=== PATIENT | female | born 1965 | race Caucasian/White ===

== ENCOUNTER 2019-11-22 10:37 | Outpatient (CLI) | payer OTHER, SELFPAY ==
--- NOTE | ~2019-11-22 | US_ITS ---
EXAMINATION:US venous doppler LE RT INDICATION:Right lower leg pain TECHNIQUE: Multiple grayscale, color flow and Doppler images of the right lower extremity deep venous systems were obtained and reviewed. COMPARISON:No prior studies for comparison. FINDINGS: The common femoral, superficial femoral and popliteal veins demonstrate normal respiratory variation, augmentation and compressibility. Color flow is also seen within the posterior tibial, pe roneal, greater saphenous and profunda veins. There is a Marroquin's cyst in the right popliteal fossa. IMPRESSION: 1: No lower extremity deep venous thrombosis. Reviewed, dictated and finalized at location A.
== END 2019-11-22 10:38 | disposition home or self-care (01) ==
PROVIDERS: PCP Family Medicine; Visit Provider Family Medicine
DX: M79.661 Pain in right lower leg (principal)
CPT/HCPCS: 93971

== ENCOUNTER 2019-12-13 10:07 | Outpatient (CLI) | payer OTHER, SELFPAY ==
--- NOTE | 2019-12-13 11:30 | NEURO_ITS ---
Patient Number: [id number] Impression: # Complains of pain in elbow and wrist. # No Carpal Tunnel Syndrome or ulnar neuropathy. # Normal nerve conduction study. # Normal needle/EMG exam. # Clinical correlation recommended. Nerve Conduction Studies Anti Sensory Summary Table Stim Site NR Peak (ms) P-T Amp (?V) Site1 Site2 Delta-P (ms) Dist (cm) Willy (m/s) Left Median Anti Sensory (2-3nd Digit) Wrist 2.8 79.9 Wrist 2-3nd Digit 2.8 14.0 50 Wrist 2.8 66.3 Wrist 2-3nd Digit 2.8 14.0 50 Right Median Anti Sensory (2-3nd Digit) Wrist 2.8 74.1 Wrist 2-3nd Digit 2.8 14.0 50 Wrist 2.8 60.8 Wrist 2-3nd Digit 2.8 14.0 50 Left Radial Anti Sensory (Base 1st Digit) Wrist 2.0 21.7 Wrist Base 1st Digit 2.0 0.0 Right Radial Anti Sensory (Base 1st Digit) Wrist 2.5 12.9 Wrist Base 1st Digit 2.5 0.0 Left Ulnar Anti Sensory (5th Digit) Wrist 2.3 38.7 Wrist 5th Digit 2.3 14.0 61 Right Ulnar Anti Sensory (5th Digit) Wrist 2.4 14.2 Wrist 5th Digit 2.4 14.0 58 Motor Summary Table Stim Site NR Onset (ms) O-P Amp (mV) Site1 Site2 Delta-0 (ms) Dist (cm) Willy (m/s) Left Median Motor (Abd Poll Brev) Wrist 2.9 5.9 Elbow Wrist 4.6 26.0 57 Elbow 7.5 5.1 Right Median Motor (Abd Poll Brev) Wrist 2.9 5.8 Elbow Wrist 4.7 26.0 55 Elbow 7.6 3.6 Left Ulnar Motor (Abd Dig Minimi) Wrist 2.4 6.9 A Elbow Wrist 4.5 28.0 62 A Elbow 6.9 5.9 Right Ulnar Motor (Abd Dig Minimi) Wrist 2.5 5.4 A Elbow Wrist 4.6 28.0 61 A Elbow 7.1 4.6 F Wave Studies NR F-Lat (ms) L-R F-Lat (ms) Left Median (Mrkrs) (Abd Poll Brev) 26.75 1.14 Right Median (Mrkrs) (Abd Poll Brev) 27.89 1.14 Left Ulnar (Mrkrs) (Abd Dig Min) 26.40 0.50 Right Ulnar (Mrkrs) (Abd Dig Min) 26.90 0.50 EMG Side Muscle Nerve Root Ins Act Fibs Amp Dur Recrt Comment Right 1stDorInt Ulnar C8-T1 Nml Nml Nml Nml Nml Right Ext Indicis Radial (Post Int) C7-8 Nml Nml Nml Nml Nml Right Ext Digitorum Radial (Post Int) C7-8 Nml Nml Nml Nml Nml Right BrachioRad Radial C5-6 Nml Nml Nml Nml Nml Right PronatorTeres Median C6-7 Nml Nml Nml Nml Nml Right Abd Poll Brev Median C8-T1 Nml Nml Nml Nml Nml Left 1stDorInt Ulnar C8-T1 Nml Nml Nml Nml Nml Left Ext Indicis Radial (Post Int) C7-8 Nml Nml Nml Nml Nml Left Ext Digitorum Radial (Post Int) C7-8 Nml Nml Nml Nml Nml Left BrachioRad Radial C5-6 Nml Nml Nml Nml Nml Left PronatorTeres Median C6-7 Nml Nml Nml Nml Nml Left Abd Poll Brev Median C8-T1 Nml Nml Nml Nml Nml MTDD
== END 2019-12-13 10:08 | disposition home or self-care (01) ==
PROVIDERS: PCP Family Medicine; Visit Provider Family Medicine
DX: R20.2 Paresthesia of skin (principal)
CPT/HCPCS: 95886; 95911

== ENCOUNTER → 2020-12-23 13:43 | Outpatient (CLI) | payer BC, SELFPAY ==
--- NOTE | ~2020-12-23 | US_ITS ---
EXAMINATION: US pelvic complete w TV EXAM DATE: 12/23/2020 14:09 INDICATION: Pelvic pain. TECHNIQUE: Pelvic transabdominal and transvaginal sonogram was performed. There are multiple graysca le and Doppler images available for interpretation. There is no prior study for comparison. FINDINGS: Uterus measures 6.6 x 2.6 x 3.5 cm, is retroverted and morphologically normal. Endometria l stripe measures 2 mm, within normal limits. There is no free pelvic fluid. Right adnexa: The ovary measures 1.6 x 0.8 x 1.5 cm and is morphologically normal. Ovarian vascular f low confirmed. Left adnexa: The ovary measures 1.9 x 1.3 x 1.4 cm and is morphologically normal. Ovarian vascular fl ow confirmed. IMPRESSION: 1. Unremarkable pelvic ultrasound exam. Reviewed, dictated and finalized at location A.
== END ==
PROVIDERS: Visit Provider Family Medicine
DX: R10.2 Pelvic and perineal pain (principal)
CPT/HCPCS: 76830; 76856

== ENCOUNTER → 2021-01-31 12:29 | Outpatient (CLI) | payer BC, SELFPAY ==
--- NOTE | ~2021-01-31 | MM_ITS ---
EXAMINATION: MM screening sarita BI w fadi HISTORY: Screening mammogram, family history of breast cancer in her mother and sister. TECHNIQUE: Craniocaudal and mediolateral oblique 3-D tomosynthesis images were obtained and synthetic 2-D images were generated. CAD analysis was submitted and interpreted. COMPARISON: 08/02/2017, 07/23/2017, 03/05/2016 BREAST PARENCHYMAL COMPOSITION: The breasts are extremely dense, which lowers the sensitivity of mamm ography. FINDINGS: There is no evidence of suspicious mass, calcification, or architectural distortion to sugg est malignancy in either breast. There has been no suspicious interval change. IMPRESSION: 1. No mammographic evidence of malignancy. 2. Recommend routine screening mammography in one year. BI-RADS Category 1: Negative Reviewed, dictated and finalized at location A.
== END ==
PROVIDERS: PCP Family Medicine; Visit Provider Family Medicine
DX: Z12.31 Encounter for screening mammogram for malignant neoplasm of breast (principal)
CPT/HCPCS: 77063; 77067

== ENCOUNTER → 2022-09-02 16:47 | Outpatient (CLI) | payer OTHER, SELFPAY ==
--- NOTE | ~2022-09-02 | MM_ITS ---
EXAMINATION: MM screening sarita BI w fadi HISTORY: Screening mammogram TECHNIQUE: Craniocaudal and mediolateral oblique 3-D tomosynthesis images were obtained and synthetic 2-D images were generated. CAD analysis was submitted and interpreted. COMPARISON: 01/31/2021 bilateral screening mammogram 08/02/2017 left diagnostic mammogram and left complete breast ultrasound examination 07/23/2017 bilateral screening mammogram BREAST PARENCHYMAL COMPOSITION: FINDINGS: . Possible asymmetry/architectural distortion in the posterior outer right breast on CC projection. New approximately 11 mm opacity is suggested in the central left breast on craniocaudal view approxim ately 3.8 cm deep to the nipple. IMPRESSION: 1. Bilateral mammographic asymmetries 2. Bilateral diagnostic mammogram and breast ultrasound examination are recommended. BI-RADS Category 0: Incomplete: Needs additional imaging evaluation. Reviewed, dictated and finalized at location A. WIRE CHIEF IMPRESSION: 1. Bilateral mammographic asymmetries 2. Bilateral diagnostic mammogram and breast ultrasound examination are recomme nded. BI-RADS Category 0: Incomplete: Needs additional imaging evaluation.
== END ==
PROVIDERS: PCP Nurse Practitioner; Visit Provider Nurse Practitioner
DX: Z12.31 Encounter for screening mammogram for malignant neoplasm of breast (principal); R92.8 Other abnormal and inconclusive findings on diagnostic imaging of breast
CPT/HCPCS: 77063; 77067

== ENCOUNTER → 2022-09-23 08:52 | Outpatient (CLI) | payer OTHER, SELFPAY ==
--- NOTE | ~2022-09-23 | MMUS_ITS ---
EXAMINATION: MM diagnostic sarita BI w fadi, US breast BI limited HISTORY: Bilateral breast asymmetries on screening mammogram TECHNIQUE: Additional 3-D tomosynthesis images of the breasts were performed and synthetic 2-D images were generated. CAD analysis was submitted and interpreted. High resolution limited bilateral breast ultrasound was performed. COMPARISON: 09/02/2022, 01/31/2021, 08/02/2017 FINDINGS: MAMMOGRAPHIC FINDINGS: There is a return to baseline fibroglandular appearance with spot compression of the breasts in the a reas questioned on screening mammogram. ULTRASOUND: There is no evidence of focal abnormal solid or cystic mass in the vicinity of the mammographic findi ngs in question. IMPRESSION: 1. No mammographic or sonographic evidence of malignancy. 2. Recommend routine screening mammography in one year. BI-RADS Category 1: Negative Reviewed, dictated and finalized at location A. TMENT MAINTENANCE MANAGER IMPRESSION: 1. No mammographic or sonographic evidence of malignancy. 2. Recommend routine screening mammography in one year. BI-RADS Category 1: Negative
== END ==
PROVIDERS: PCP Family Medicine; Visit Provider Nurse Practitioner
DX: R92.8 Other abnormal and inconclusive findings on diagnostic imaging of breast (principal)
CPT/HCPCS: 76642; 77062; 77066; G0279

== ENCOUNTER 2024-01-13 13:12 | Outpatient (CLI) | payer BC, SELFPAY ==
--- NOTE | ~2024-01-13 | MM_ITS ---
EXAMINATION: MM screening sarita BI w fadi HISTORY: Screening mammogram, family history of breast cancer in her mother and sister. TECHNIQUE: Craniocaudal and mediolateral oblique 3-D tomosynthesis images were obtained and synthetic 2-D images were generated. CAD analysis was submitted and interpreted. COMPARISON: 09/23/2022, 09/02/2022, 01/31/2021 BREAST PARENCHYMAL COMPOSITION:Dense: The breasts are extremely dense, which lowers the sensitivity o f mammography. FINDINGS: No suspicious mass, calcification, or architectural distortion are identified in either jeri ast to suggest malignancy. There has been no suspicious interval change. IMPRESSION: No mammographic evidence of malignancy. Recommend routine screening mammography in one year. BI-RADS Category 1: Negative Reviewed, dictated and finalized at location .
== END 2024-01-13 13:13 | disposition home or self-care (01) ==
LOC: ANHIMG 13:14
PROVIDERS: PCP Family Medicine; Visit Provider Nurse Practitioner
DX: Z12.31 Encounter for screening mammogram for malignant neoplasm of breast (principal)
CPT/HCPCS: 77063; 77067

== ENCOUNTER 2024-08-10 15:09 | Outpatient (CLI) | payer BC, SELFPAY ==
--- NOTE | ~2024-08-10 | XR_ITS ---
Left Hand Technique: PA, oblique, and lateral views were obtained. Clinical History: Arthralgia Findings: No acute fracture or dislocation is seen. Osseous alignment is anatomic. There is moderate degenerative change of the third and fourth DIP joints. Soft tissues are unremarkable. Impression: Degenerative change of the third and fourth DIP joints, as above. Reviewed, dictated and finalized at location . TED CIRCUIT BOARD PANELS TRIMMER Impression: Degenerative change of the third and fourth DIP joints, as above.
--- NOTE | ~2024-08-10 | XR_ITS ---
Right Hand Technique: PA, oblique, and lateral views were obtained. Clinical History: Arthralgia Findings: No acute fracture or dislocation is seen. Osseous alignment is anatomic. Joint spaces are p reserved. Soft tissues are unremarkable. Impression: Unremarkable right hand. Reviewed, dictated and finalized at location . DESIGNER Impression: Unremarkable right hand.
== END 2024-08-10 15:10 | disposition home or self-care (01) ==
PROVIDERS: PCP Family Medicine; Visit Provider Nurse Practitioner
DX: M25.541 Pain in joints of right hand (principal); M20.009 Unspecified deformity of unspecified finger(s); M19.042 Primary osteoarthritis, left hand
CPT/HCPCS: 73130

== ENCOUNTER 2024-09-11 10:53 | Outpatient (CLI) | payer BC, SELFPAY ==
--- NOTE | ~2024-09-11 | CT_ITS ---
CT of the Abdomen and Pelvis: Indication: Postmenopausal bleeding, abdominal pain Technique: 2.5 mm axial scans were obtained through the abdomen and pelvis following intravenous adm inistration of 100 cc of Omnipaque 350. Dose reduction technique was used on this scan by utilizing a utomated exposure control and iterative reconstruction technique. The dose-length product (DLP) was 2 89.50 mGy-cm. Findings: Scans through the lung bases are unremarkable. The liver, spleen, pancreas, adrenals and kidneys are within normal limits. Cholecystectomy clips are present. No evidence of aortic aneurysm. No lymphadenopathy. No bowel obstruction or bowel wall thickening. There is no evidence to suggest acute appendicitis. Images through the pelvis were performed. Urinary bladder unremarkable. No pelvic mass seen. No ascit es. Bilateral L5 pars interarticularis defects are present, without subluxation. Impression: No acute abnormality seen. Given history of postmenopausal bleeding, pelvic ultrasound is recommended for further evaluation of the endometrium. Reviewed, dictated and finalized at [facility]. CE 365 CONSULTANT Impression: No acute abnormality seen. Given history of postmenopausal bleeding, pelvic ult rasound is recommended for further evaluation of the endometrium.
== END 2024-09-11 10:54 | disposition home or self-care (01) ==
PROVIDERS: PCP Nurse Practitioner; Visit Provider Nurse Practitioner
DX: N95.0 Postmenopausal bleeding (principal); R10.33 Periumbilical pain; R14.0 Abdominal distension (gaseous)
CPT/HCPCS: 74177; Q9967

== ENCOUNTER 2024-09-20 10:20 | Outpatient (CLI) | payer BC, SELFPAY ==
--- NOTE | ~2024-09-20 | US_ITS ---
US pelvic complete Ordering provider: Opal Ortiz, ANP History: . postmenopausal bleeding . Comparison: None. Technique: Transabdominal and endovaginal ultrasound of the pelvis (Doppler ultrasound interrogation techniques used as needed for this exam.) FINDINGS: CERVIX: Normal. UTERUS: Measures 6.9x 2.5x 4.4 cm in length which is within normal limits and is anteverted. No myom etrial masses. ENDOMETRIUM: Normal in thickness measuring 5 mm.No endometrial masses, cysts or fluid. CUL DE SAC: No free fluid. RIGHT OVARY: Normal in size measuring 2.3x 1.2x 1.5 cm. Normal echotexture. Doppler vascular flow pre sent. LEFT OVARY: Normal in size measuring 1.7x 0.9x 1.5 cm. Normal echotexture. Doppler vascular flow pres ent. ADNEXA: Normal. No mass. IMPRESSION: normal pelvic ultrasound. Reviewed, dictated and finalized at location A. EY STATISTICIAN IMPRESSION: normal pelvic ultrasound.
== END 2024-09-20 10:21 | disposition home or self-care (01) ==
LOC: MICIMG 10:20
PROVIDERS: PCP Nurse Practitioner; Visit Provider Nurse Practitioner
DX: N95.0 Postmenopausal bleeding (principal)
CPT/HCPCS: 76856

== ENCOUNTER 2024-12-12 11:55 | Outpatient (CLI) | payer BC, SELFPAY ==
--- NOTE | ~2024-12-12 | XR_ITS ---
XR_[id number]_CR Ordering provider: Opal Ortiz, ANP History: . Cervical radiculopathy . Comparison: None. FINDINGS: VERTEBRAL BODIES: Anterolisthesis seen at the level of C4-C5. Otherwise, Normal height and alignment. No visible fracture or subluxation. The dens is intact. Degenerative changes of the spine. DISK SPACES: Narrowing of the disc C5-C6 and C6-C7. Multilevel facet joint disease. Multilevel uncove rtebral joint osteoarthritic changes. PARASPINOUS SOFT TISSUES: No prevertebral soft tissue swelling. IMPRESSION: No acute osseous abnormality cervical spine. Minimal anterolisthesis at the level of C4-C5. Multilevel degenerative disc disease. Reviewed, dictated and finalized at location A.
--- NOTE | ~2024-12-12 | XR_ITS ---
3 VIEWS LUMBAR SPINE Ordering provider: Opal Ortiz, ANP History: . Lumbar radiculopathy . Comparison: None. FINDINGS: VERTEBRAL BODIES:Spondylolysis at the level of L5-S1. No visible fracture or subluxation. DISK SPACES: Normal. SOFT TISSUES: Normal. IMPRESSION: No acute osseous abnormality lumbar spine. Spondylolysis at the level of L5-S1. Reviewed, dictated and finalized at location A.
== END 2024-12-12 11:56 | disposition home or self-care (01) ==
PROVIDERS: PCP Nurse Practitioner; Visit Provider Nurse Practitioner
DX: M47.26 Other spondylosis with radiculopathy, lumbar region (principal); M50.30 Other cervical disc degeneration, unspecified cervical region
CPT/HCPCS: 72040; 72100

== ENCOUNTER 2024-12-29 14:56 | Outpatient (CLI) | payer BC, SELFPAY ==
--- NOTE | ~2024-12-29 | MR_ITS ---
MRI of the cervical spine Clinical History: Radiculopathy Technique: Axial T2-weighted and gradient images, and sagittal T1-weighted, T2-weighted, and STIR freya ges were acquired. Findings: No fracture identified in the cervical spine. There is 2 mm anterolisthesis of C3 over C4. There is 2 mm retrolisthesis of C5 over C6. No suspicious bone marrow signal abnormality seen. At C2-C3, there is no disc bulge or herniation. There is minimal facet arthropathy. No central canal stenosis, cord compression, or neural foraminal narrowing. At C3-C4, there is no disc bulge or herniation. There is bilateral facet arthropathy with probable mi ld bilateral neural foraminal narrowing. No canal stenosis or cord compression. At C4-C5, there is disc bulge with left facet arthropathy. There is left neural foraminal narrowing. Right neural foramen preserved. No canal stenosis or cord compression. At C5-C6, there is advanced degenerative disc narrowing. There is minimal disc osteophyte complex. Th ere is minimal canal stenosis without cord compression. There is bilateral neural foraminal narrowing , moderate to severe degree. At C6-C7, there is severe degenerative tearing. There is mild disc osteophyte complex. There is mild to moderate canal stenosis without jamel cord compression. There is bilateral neural foraminal narrow ing, moderate to severe in degree. No abnormal signal seen in the spinal cord. Paravertebral soft tissues are unremarkable. Impression: Moderate to advanced degenerative spondylosis at C5-C6 and C6-C7, as detailed above. Mild degenerative change in the remainder of the cervical spine. 2 mm anterolisthesis of C3 over C4. 2 mm retrolisthesis of C5 over C6. Reviewed, dictated and finalized at [facility]. Impression: Moderate to advanced degenerative spondylosis at C5-C6 and C6-C7, as detailed a codie. Mild degenerative change in the remainder of the cervical spine. 2 mm anterolisthesis of C3 over C4. 2 mm retrolisthesis of C5 over C6.
--- NOTE | ~2024-12-29 | MR_ITS ---
MRI of the lumbar spine Clinical History: Radiculopathy Technique: Axial T2-weighted images, and sagittal T1-weighted, T2-weighted, and T2 fat-sat images wer e acquired. Findings: There is no fracture or subluxation of the lumbar spine. Vertebral bodies maintain normal h eight and alignment. No bone marrow signal abnormality seen. At L1-L2 and L2-L3, intervertebral disc maintain normal signal and position. No disc bulge or herniat ion at these levels. There is minimal facet arthropathy. No spinal canal stenosis or neural foraminal narrowing at these levels. L3-L4, there is minimal disc desiccation. No disc bulge or herniation. No spinal canal stenosis or ne ural foraminal narrowing. At L4-L5, there is mild disc bulge/protrusion with minimal facet arthropathy. No central canal stenos is or neural foraminal narrowing. At L5-S1, there is minimal disc bulge. No spinal canal stenosis or neural foraminal narrowing. There is mild right paracentral disc protrusion noted at the T12-L1 level. No canal stenosis or neura l foraminal narrowing at this level. Paravertebral soft tissues are unremarkable. Impression: Minimal degenerative change overall, as detailed above. Reviewed, dictated and finalized at location . Impression: Minimal degenerative change overall, as detailed above.
== END 2024-12-29 14:57 | disposition home or self-care (01) ==
PROVIDERS: PCP Nurse Practitioner; Visit Provider Nurse Practitioner
DX: M47.22 Other spondylosis with radiculopathy, cervical region (principal); M51.369 Other intervertebral disc degeneration, lumbar region without mention of lumbar back pain or lower extremity pain
CPT/HCPCS: 72141; 72148

== ENCOUNTER 2025-02-08 07:53 | Outpatient (CLI) | payer BC, SELFPAY ==
--- NOTE | ~2025-02-08 | MM_ITS ---
EXAMINATION: MM screening sarita BI w fadi HISTORY: Screening TECHNIQUE: Craniocaudal and mediolateral oblique 3-D tomosynthesis images were obtained and synthetic 2-D images were generated. CAD analysis was submitted and interpreted. COMPARISON: Comparison to multiple prior studies sequentially, with oldest reviewed study dated 03/05. BREAST PARENCHYMAL COMPOSITION: The breasts are heterogeneously dense, which may obscure small masses . FINDINGS: There is no evidence of suspicious mass, calcification, or architectural distortion to sug gest malignancy in either breast. IMPRESSION: 1. No mammographic evidence of malignancy. 2. Recommend routine screening mammography in one year. BI-RADS Category 1: Negative Reviewed, dictated and finalized at location B.
--- OUTSIDE RECORDS SUMMARY | 2025-02-08 07:58 | XMS_ITS | Clinical Summary ---
Author Organization [facility] Address [address] [place] [address] Phone Care Team Providers Care Operations Support Representative Name Role Phone Vic Eldridge MD Primary Care Provider [phone] Allergies Active Allergy Reactions Criticality Noted Date Comments Lactose Diarrhea Low 10/14/2016 Penicillins Other (See Comments) 10/09/2016 Throat closes up Medications sertraline (ZOLOFT) 50 mg tablet Take 50 mg by mouth daily TAKES 1/2 TAB DAILY. Active dicyclomine (BENTYL) 10 mg capsule Take 10 mg by mouth 1 time daily as needed. Active Active Problems Problem Noted Date Diagnosed Date Cervical spondylosis without myelopathy 12/27/19 19 Right rotator cuff tendonitis 12/26/2018 Gallstones 10/09/2016 Family History Medical History Relation Name Comments No Known Problems Father Breast Cancer Mother Cancer Sister Relation Name Status Comments Father Alive Mother Alive Sister Social History Tobacco Use Types Packs/Day Years Used Date Smoking Tobacco: Former E-Cigarette/Mist Inhalation Device Smokeless Tobacco: Former Alcohol Use Standard Drinks/Week Comments Yes 0 (1 standard drink = 0.6 oz pur e alcohol) 2-3 GLASSES OF WINE DAILY Comments Unknown Sex and Gender Information Value Date Recorded Sex Assigned at Not on file Legal Sex Female 8:48 AM CDT Gender Identity Not on file Sexual Orientation Not on file Occupation Industry Job Start Date Job End Date [employer] Not on file Not on file Not on file Last Filed Vital Signs Vital Sign Reading Time Taken Comments Blood Pressure 118/80 12/26/2018 11:07 AM CDT Pulse 79 11/02/2016 4:21 PM CDT Temperature 36.7 C (98 F) 10/20/2016 4:01 PM CDT Respiratory Rate 16 10/20/2016 4:01 PM CDT Oxygen Saturation 98% 10/20/2016 4:01 PM CDT Inhaled Oxygen Concentration - - Weight 59 kg (130 lb) 12/26/2018 11:07 AM CDT Height 152.4 cm (5') 12/26/2018 11:07 AM CDT Body Mass Index 25.39 12/26/2018 11:07 AM CDT Plan of Treatment Health Maintenance Due Date Last Done Comments DTAP/TDAP/TD VACCINES (1 - Tdap) 10/22/1986 HEPATITIS B VACCINES (1 of 3 - 19+ 3-dose series) 12/1986 HPV/Cotest (21-29) 10/22/1988 CERVICAL CANCER SCREENING 10/22/1997 HPV/Cotest (30-65) 10/22/1997 PAP SMEAR 10/22/1997 BREAST CANCER SCREENING 2007 COLORECTAL SCREENING 10/22/2012 Colorectal Cancer Screening 10/22/2012 FIT-DNA Q 3 years 10/22/2012 FIT/FOBT Q 1 year 10/22/2012 Flex Sig/CT Colonography Q 5 years 10/22/2012 ZOSTER VACCINE (1 of 2) 10/22/2017 INFLUENZA VACCINE (#1) 2025 Insurance RX [employer] RX Member Subscriber Plan / Payer (Ef fective for All Dates) Name:Susy Gold Relation to Subscriber:Self Name:Susy Gold Payer ID:Not on file Type:RX Commercial Address: [address] Advance Directives For more information, please contact: [phone] * Full Code (Latest Code Status on File) Date Activated Date Inactivated Comments 10/20/2016 12:52 PM 10/20/2016 6:30 PM * Full Code Date Activated Date Inactivated Comments 10/20/2016 11:35 AM 10/20/2016 12:52 PM * Full Code Date Activated Date Inactivated Comments 10/20/2016 10:12 AM 10/20/2016 11:35 AM Care Teams Operations Support Representative Relationship Specialty Start Date End Date Vic Eldridge MD PCP - General Family Practice 09/30/16
--- OUTSIDE RECORDS SUMMARY | 2025-02-08 07:58 | XMS_ITS | Encounter Summary ---
Author Organization [facility] Address [address] [place] [id number] Care Team Providers Care Band Head Saw Operator Name Role Phone Opal Ortiz NP Primary Care Provider [phone] Encounter Details Date Type Department Care Team (Late st Contact Info) Description 03/24/2024 [employer] Message Enc [facility] Family Medicine - [place] [address] [facility] [address] [place] [address] [phone] Opal Ortiz NP [address] [place] [address] Bone Density Scan Social History Tobacco Use Types Packs/Day Years Used Date Smoking Tobacco: Former Cigarettes 1 15 0 07/19/1995 - 07/19/2010 Passive Smoke Exposure: Never Smokeless Tobacco: Never Alcohol Use Standard Drinks/Week Comments Not Currently 0 (1 standard drink = 0.6 oz pur e alcohol) quit drinkin 2016 PHQ-2 Answer Date Recorded Patient Health Questionnaire-2 Score 0 12/30/2023 Comments No Sex and Gender Information Value Date Recorded Sex Assigned at Female 09/01/2024 9:00 AM HAND BLOCKER Legal Sex Female 11:48 AM HAND BLOCKER Gender Identity Female 09/01/2024 9:00 AM HAND BLOCKER Sexual Orientation Straight 09/01/2024 9: 00 AM HAND BLOCKER documented as of this encounter Progress Notes * Opal Ortiz NP - 04/10/2024 11:32 AM CDT See below * Opal Ortiz NP - 03/24/2024 4:14 PM CDT See below. I am not sure what preventative code for her DEXA she is needing as it is typically covered under the Dx's that I used. documented in this encounter Plan of Treatment Not on file documented as of this encounter Visit Diagnoses Not on filedocumented in this encounter Additional Health Concerns Assessment Noted Time PHQ-9 Depression Total Score: 2 12/30/19 24 8:45 AM CDT documented as of this encounter Care Teams Band Head Saw Operator Relationship Specialty Start Date End Date Opal Ortiz NP [address] [place] [address] PCP - General NURSE PRACTITIONER 10/09/22 documented as of this encounter
--- OUTSIDE RECORDS SUMMARY | 2025-02-08 07:58 | XMS_ITS | Encounter Summary ---
Author Organization [facility] Address [address] [place] [address] Care Team Providers Care Head Of Talent Management Name Role Phone Opal Ortiz NP Primary Care Provider [phone] Encounter Details Date Type Department Care Team (Late st Contact Info) Description 01/01/2025 [employer] Message [facility] Family Medicine [facility] [address] [facility] [address] [place] [address] [id number] [facility] Provider results and referral dept number Social History Tobacco Use Types Packs/Day Years Used Date Smoking Tobacco: Former Cigarettes 1 15 0 07/19/1995 - 07/19/2010 Passive Smoke Exposure: Never Smokeless Tobacco: Never Alcohol Use Standard Drinks/Week Comments Not Currently 0 (1 standard drink = 0.6 oz pur e alcohol) quit drinkin 2016 PHQ-2 Answer Date Recorded Patient Health Questionnaire-2 Score 0 11/23/2024 Comments No Sex and Gender Information Value Date Recorded Sex Assigned at Female 09/01/2024 9:00 AM TELEPHONE SURVEYOR Legal Sex Female 11:48 AM TELEPHONE SURVEYOR Gender Identity Female 09/01/2024 9:00 AM TELEPHONE SURVEYOR Sexual Orientation Straight 09/01/2024 9: 00 AM TELEPHONE SURVEYOR documented as of this encounter Plan of Treatment Not on file documented as of this encounter Visit Diagnoses Not on filedocumented in this encounter Additional Health Concerns Assessment Noted Time PHQ-9 Depression Total Score: 2 12/30/19 24 8:45 AM CDT documented as of this encounter Care Teams Head Of Talent Management Relationship Specialty Start Date End Date Opal Ortiz NP [address] [place] [address] PCP - General NURSE PRACTITIONER 10/09/22 documented as of this encounter
--- OUTSIDE RECORDS SUMMARY | 2025-02-08 07:58 | XMS_ITS | Clinical Summary ---
Author Organization [facility] Address [address] [place] [address] Care Team Providers Care Abalone Processor Name Role Phone Vic Eldridge MD Primary Care Provider [phone] Allergies Active Allergy Reactions Criticality Noted Date Comments Lactose Diarrhea Low 10/14/2016 ABDOMINAL PAIN Penicillins Other (See comments) Low 10/09/2016 Throat closes up Medications atorvastatin (LIPITOR) 10 mg tablet Take 10 mg by mouth daily 0 Active cyclobenzaprine (FLEXERIL) 10 mg tablet nightly as needed Active diazePAM (VALIUM) 5 mg tablet Take 5 mg by mouth 2 (two) times a day as needed 0 Active traMADoL (ULTRAM) 50 mg tablet tramadol 50 mg tablet 9 Active sertraline (ZOLOFT) 50 mg tablet sertraline 50 mg tablet TAKE 1 TABLET BY MOUTH ONCE DAILY 9 Active meloxicam (MOBIC) 15 mg tablet meloxicam 15 mg tablet Take 1 tablet by mouth once daily Active Active Problems Problem Noted Date Diagnosed Date 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 (2016): CHR LYMPHOCYT THYROIDIT Dizziness 10/26/2013 Immunizations Immunization Administration Dates Next Due Tdap 08/10/2019 ZOSTER Recombinant 01/08/2020,08/10/2019 Surgical History Surgery Date Site/Laterality Comments CHOLECYSTECTOMY TUBAL LIGATION Medical History Medical History Date Comments Disorder of thyroid Thyroid dise ase Anxiety Hypercholesteremia Migraines Peripheral neuropathy Urinary tract infection Family History Medical History Relation Name Comments Arthritis Father Hypertension Father Stroke Father Cancer Mother Hypertension Mother Cancer Sister Relation Name Status Comments Father Mother Sister Social History Tobacco Use Types Packs/Day Years Used Date Smoking Tobacco: Former Smokeless Tobacco: Never Tobacco Cessation:Counseling Given: Not Answered Alcohol Use Standard Drinks/Week Comments Yes 0 (1 standard drink = 0.6 oz pur e alcohol) Comments Unknown Sex and Gender Information Value Date Recorded Sex Assigned at Not on file Legal Sex Female 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 Gender Identity Female 01/17/2020 11:33 AM CDT Sexual Orientation Not on file Obstetrics History Last Filed Vital Signs Vital Sign Reading Time Taken Comments Blood Pressure 122/80 01/23/2020 10:38 AM CDT Pulse 78 01/23/2020 10:38 AM CDT Temperature - - Respiratory Rate - - Oxygen Saturation 97% 10/26/2013 7:59 AM CDT Inhaled Oxygen Concentration - - Weight 58.2 kg (128 lb 6.4 oz) 11/11/2022 9:12 A M CDT Height 156.2 cm (5' 1.5) 11/11/2022 9:12 AM CDT Body Mass Index 23.87 11/11/2022 9:12 AM CDT Plan of Treatment Health Maintenance Due Date Last Done Comments Breast Cancer Screening-Mammogram 1967 Cervical Cancer Screening 1967 Colon Cancer Screening-Colonoscopy 1967 Depression Screening 1967 Hepatitis C Screening 1967 Hepatitis B Screening 10/22/1985 Regular Well Visit/Exam 18-64 10/22/1985 Influenza Vaccine (Season Ended) 2025 DTaP/Tdap/Td Vaccine (2 - Td or Tdap) 08/10/2029 08/10/2019 Zoster Vaccine Completed 01/08/2020, 08/10/2019 Pneumococcal vaccine <65 Aged Out No longer eligible based on patient's age to complete this topic Insurance A[employer] [facility] HMO CIGNA OPEN ACCESS CIGNA OPEN ACCESS [facility] HMO Care Teams Abalone Processor Relationship Specialty Start Date End Date Vic Eldridge MD [facility] [place] [address] PCP - General 03/08/08
--- OUTSIDE RECORDS SUMMARY | 2025-02-08 07:58 | XMS_ITS | Clinical Summary ---
Author Organization [facility] [employer] Address [address] [place] [address] Care Team Providers Care Engineering Mgr Name Role Phone Vic Eldridge MD Unavailable [phone] Vic Eldridge MD Primary Care Provider Source Comments [facility] [employer],non-owned Affiliates and Associated Physician Practices is amultiple site organization consisting of ambulatory clinics and hospital sitesin [place], [place] and [place]. This disclosure is being madepursuant to the Care Everywhere program and may not contain all information available regarding this patient. Last updated 18.[facility] [employer] Allergies Active Allergy Reactions Criticality Noted Date Comments Penicillins 11/03/2010 Medications * Be aware that medications may not be up to date on this document. Alwaysverify current medications with the patient. levothyroxine (SYNTHROID) 25 MCG tablet daily. Active Hydrocodone-Robin taminophen 10-750 MG TABS as needed. Acti ve traMADol (ULTRAM) 50 MG tablet as needed. Active tapentadol (NUCYNTA) 75 MG tablet daily as needed. Act james cyclobenzaprine (FLEXERIL) 10 MG tablet nightly as needed. Active piroxicam (FELDENE) 10 MG capsule Take 1 Cap by mouth once daily. Pt will discontinue voltaren 60 Cap 3 2 Active Active Problems Problem Noted Date Diagnosed Date Family history of breast cancer 10/18/2017 Overview (10/18/2017): 11/22/2014 [place] sent on pt's mother, Velma Rodriguez (webb): negative for mutation.[employer] panel genetic testing includes: APC, RICH, BARD1, BMPR1A, BRCA1, BRCA2, BRIP1, CDH1, CDK4, CDKN2A, CHEK2, EPCAM (large rearrangement only), MLH1, MSH2, MSH6, MUTYH, NBN, PALB2, PMS2, PTEN, RAD51C, RAD51D, SMAD4, STK11, TP53. Have copy. 02/24/2010 Pt's maternal aunt, Cheryl Jernigan ( 05/13/45): had BRCA testing with myriad: Negative, did not include Steven. Have copy. 04/23/2010 Pt's sister, Kendal Samuels ( 03/17/65): had BRCA testing with myriad: Negative, did not include Steven. Have copy Degeneration of lumbar or lumbosacral interverte bral disc 11/05/2010 Family History Medical History Relation Name Comments Cancer - Breast Maternal Aunt 1 Kallie Cancer - Breast Maternal Aunt 2 Sejal Jernigan brca n egative, did not include steven Cancer - Breast Mother Velma Rodriguez Myriad My Risk negative Cancer - Breast Sister Kendal Corrigan brca neg, d id not include steven Hodgkin's lymphoma Sister Kendal Corrigan had ches t mantle radiation Relation Name Status Comments Maternal Aunt 1 Kallie Maternal Aunt 2 Sejal Jernigan Alive Mother Velma Rodriguez Alive Sister Kendal Corrigan Alive Social History Tobacco Use Types Packs/Day Years Used Date Smoking Tobacco: Former Smokeless Tobacco: Never Alcohol Use Standard Drinks/Week Comments Yes 0 (1 standard drink = 0.6 oz pur e alcohol) Comments No Sex and Gender Information Value Date Recorded Sex Assigned at Not on file Legal Sex Female 11:33 AM 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 Gender Identity Not on file Sexual Orientation Not on file 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 Not on file Not on file Not on file Last Filed Vital Signs Vital Sign Reading Time Taken Comments Blood Pressure 137/86 07/24/2015 8:12 AM 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 Pulse 81 07/24/2015 8:12 AM 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 Temperature 36.8 C (98.3 F) 07/24/2015 8:12 AM 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 Respiratory Rate 18 07/24/2015 8:12 AM 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 Oxygen Saturation - - Inhaled Oxygen Concentration - - Weight 56.6 kg (124 lb 11.2 oz) 07/24/2015 8:12 AM 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 Height 152.4 cm (5') 07/24/2015 8:12 AM 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 Body Mass Index 24.35 07/24/2015 8:12 AM 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 Plan of Treatment Health Maintenance Due Date Last Done Comments COLOGUARD (AGES 45-75) - COL ON CA SCREENING 1967 COLON MONITORING 1967 COLONOSCOPY - COLON CA SCREENING 1967 CT COLONOGRAPHY - COLON CA SCREENING 1967 Colorectal Cancer Screening 1967 FIT - COLON CA SCREENING 1967 FLEX SIG - COLON CA SCREENING 1967 LIPID TESTING 1967 HIV SCREENING 10/22/1982 HEPATITIS C SCREENING 10/18/1985 DTAP/TDAP/TD VACCINES (1 - Tdap) 10/22/1986 HEPATITIS B VACCINE (1 of 3 - 19+ 3-dose series) 10/22/1986 PNEUMOCOCCAL VACCINE 50+ (1 of 1 - PCV) 10/22/2017 ZOSTER VACCINE (1 of 2) 10/22/2017 MAMMOGRAM 12/05/2021 12/06/2019, 10/03/2018 COVID-19 VACCINE (1 - 2023-2 5 season) 2024 DEPRESSION SCREENING 07/19/2024 INFLUENZA VACCINE (#1) 2025 HIB VACCINE Aged Out No longer eligi ble based on patient's age to complete this topic HPV VACCINE Aged Out No longer eligi ble based on patient's age to complete this topic MENINGOCOCCAL (Group B) VACCINE SHARED DECISION-MAKING Aged Out No longer eligible based on patient's age to complete this topic MENINGOCOCCAL GROUPS A/C/Y/W VACCINE Aged Out No longer eligible b ased on patient's age to complete this topic Procedures Procedure Name Priority Date/Time Associated Diagnosis Comments MAMMO BILAT SCREENING Routine 12/06/2019 2:07 PM CDT Visit for screening mammogram from Last 3 Months or Most Recently Relevant to Health Maintenance Results * LUC SCREENING DIGITAL IMAGE BILATERAL [id number] (12/06/2019 2:07 PM CDT) Anatomical Region Laterality Modality Breast Bilateral Mammography 12/06/2019 2:1 6 PM CDT Impressions 12/06/2019 2:20 PM CDT No mammographic evidence of malignancy in either breast. ASSESSMENT: BIRADS Category 1: Negative mammogram. RECOMMENDATION: Bilateral screening mammogram in one year. Thank you for allowing us to participate in the care of your patient. *Reading Radiologist: Matt Wolf on 12/06/2019 at 2:20 PM Narrative 12/06/2019 2:20 PM CDT EXAMINATION: Digital screening mammogram on 12/06/2019. Low-dose full-field digital breast tomosynthesis examination was performed with synthetic 2D images and 3D acquisitions. Computer assisted detection was utilized. PRIOR: Multiple prior mammograms, most recently 2018 BREAST PARENCHYMAL DENSITY: The breasts are heterogeneously dense, which may obscure small masses. RISK ASSESSMENT CALCULATION: Not performed. FINDINGS: No suspicious masses, areas of architectural distortion or microcalcifications are evident on synthetic 2D mammogram or tomosynthesis images. There has been no significant interval change since the prior examination. Vic Eldridge MD MAMMO ORDERABLES Final Result from Last 3 Months or Most Recently Relevant to Health Maintenance Insurance [employer] ANTH Care Teams Engineering Mgr Relationship Specialty Start Date End Date Vic Eldridge MD [address] [place] [address] [address] [place] [id number] PCP - General Family Medicine 10/03/18 Vic Eldridge MD [address] [place] [address] [address] [place] [id number] 11/03/10
--- OUTSIDE RECORDS SUMMARY | 2025-02-08 07:58 | XMS_ITS | Encounter Summary ---
Author Organization [facility] Address [address] [place] [address] Care Team Providers Care Process Owner Name Role Phone Opal Ortiz NP Primary Care Provider [phone] Encounter Details Date Type Department Care Team (Late st Contact Info) Description 08/31/2024 [employer] Clean Tech Message Enc [facility] Family Medicine - [place] [address] [facility] [address] [place] [address] [phone] Opal Ortiz, DAREK [address] [place] [address] Re 09/01/24 Appt / Symptom Social History Tobacco Use Types Packs/Day Years Used Date Smoking Tobacco: Former Cigarettes 1 15 0 07/19/1995 - 07/19/2010 Passive Smoke Exposure: Never Smokeless Tobacco: Never Alcohol Use Standard Drinks/Week Comments Not Currently 0 (1 standard drink = 0.6 oz pur e alcohol) quit drinkin 2017 PHQ-2 Answer Date Recorded Patient Health Questionnaire-2 Score 0 08/09/2024 Comments No Sex and Gender Information Value Date Recorded Sex Assigned at Female 09/01/2024 9:00 AM MENHADEN VESSEL PILOT Legal Sex Female 11:48 AM MENHADEN VESSEL PILOT Gender Identity Female 09/01/2024 9:00 AM MENHADEN VESSEL PILOT Sexual Orientation Straight 09/01/2024 9: 00 AM MENHADEN VESSEL PILOT documented as of this encounter Plan of Treatment Not on file documented as of this encounter Visit Diagnoses Not on filedocumented in this encounter Additional Health Concerns Assessment Noted Time PHQ-9 Depression Total Score: 2 12/30/19 24 8:45 AM CDT documented as of this encounter Care Teams Process Owner Relationship Specialty Start Date End Date Opal Ortiz NP [address] [place] [address] PCP - General NURSE PRACTITIONER 10/09/22 documented as of this encounter
--- OUTSIDE RECORDS SUMMARY | 2025-02-08 07:58 | XMS_ITS | Clinical Summary ---
Author Organization [facility] Address [facility] [place] [address] Care Team Providers Care Criminalist Technician Name Role Phone Opal Ortiz NP Primary Care Provider [phone] Allergies Active Allergy Reactions Criticality Noted Date Comments Penicillins Anaphylaxis High 06/04/2022 Medications atorvastatin (LIPITOR) 10 MG tabletIndications: Screening for hyperlipidemia TAKE 1 TABLET(10 MG) BY MOUTH EVERY NIGHT AT BEDTIME 90 tablet 3 09/04/19 25 Active sertraline (ZOLOFT) 25 MG tabletIndications: Anxiety and depression TAKE 1 TABLET(25 MG) BY MOUTH DAILY 90 tablet 11/22/19 25 Active cyclobenzaprine (FLEXERIL) 10 MG tablet Take 1 tablet (10 mg total) by mouth 3 (three) times daily as needed for Muscle Spasms. Active gabapentin (NEURONTIN) 100 MG capsuleIndications :Cervical radiculopathy,Lumb ar radiculopathy Take 1 capsule (100 mg total) by mouth 3 (three) times daily. 30 capsule 12/13/19 25 Active traMADol (ULTRAM) 50 MG tabletIndications: Lumbar radiculopathy,Dege neration of intervertebral disc of lumbar region, unspecified whether pain present TAKE 1 TABLET(50 MG) BY MOUTH EVERY 6 HOURS NEEDED FOR PAIN OR CHRONIC PAIN 7 tablet 01/06/20 25 Active meloxicam (MOBIC) 15 MG tabletIndications: Lumbar radiculopathy,Dege neration of intervertebral disc of lumbar region, unspecified whether pain present,Cervical radiculopathy Take 1 tablet (15 mg total) by mouth daily. 90 tablet 01/16/20 25 Active meloxicam (MOBIC) 7.5 MG tablet Take 1 tablet (7.5 mg total) by mouth daily as needed for Pain. 025 Discontinued meloxicam (MOBIC) 15 MG tabletIndications: Lumbar radiculopathy,Dege neration of intervertebral disc of lumbar region, unspecified whether pain present,Cervical radiculopathy Take 1 tablet (15 mg total) by mouth daily. 90 tablet 01/16/20 25 025 Discontinued Active Problems Problem Noted Date Diagnosed Date Osteoporosis, unspecified os teoporosis type, unspecified pathological fracture presence 02/23/2024 Neck pain 02/23/2024 DDD (degenerative disc disease), cervical 2023 Other fatigue 02/23/2024 Postmenopausal 12/30/2023 Insomnia, unspecified type 12/30/2023 Irritable bowel syndrome 10/09/2022 Cervical stenosis of spine 09/23/2022 Hyperlipidemia, unspecified hyperlipidemia type 06/04/2022 Menopausal syndrome (hot flashes) 06/04/2022 Prediabetes 06/04/2022 Spinal stenosis of lumbar re gion without neurogenic claudication 06/04/2022 Cervical spondylosis without myelopathy 12/27/19 19 Family history of breast cancer 10/18/2017 Overview (10/09/2022): 11/22/2014 [email or web address] sent on pt's mother, Velma Rodriguez ([place]): negative for [email or web address] panel genetic testing includes: APC, RICH, BARD1, BMPR1A, BRCA1, BRCA2, BRIP1, CDH1, CDK4, CDKN2A, CHEK2, EPCAM (large rearrangement only), MLH1, MSH2, MSH6, MUTYH, NBN, PALB2, PMS2, PTEN, RAD51C, RAD51D, SMAD4, STK11, TP53. Have copy. 02/24/2010 Pt's maternal aunt, Cheryl Jernigan ( 05/13/45): had BRCA testing with [facility]: Negative, did not include [place]. Have copy. 04/23/2010 Pt's sister, Kendal Samuels ( 03/17/65): had BRCA testing with [facility]: Negative, did not include [place]. 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 (10/09/2022): CHR LYMPHOCYT THYROIDIT Degeneration of lumbar or lumbosacral interverte bral disc 11/05/2010 Resolved Problems Problem Noted Date Diagnosed Date Resolved Date Anxiety 12/30/2023 02/23/2024 Cervical stenosis (uterine cervix) 06/04/2022 09/23/2022 Encounters Date Type Department Care Team Description 01/15/[address] [place] [address] Opal Ortiz NP Medication Request 01/04/2025 Scan [facility] [employer] [facility] Scanned, [facility] 01/01/2025 NTN [employer] Message [facility] [address] [place] [address] [facility] Provider results and referral dept number 01/01/2025 Orders Only [address] [place] [address] Opal Ortiz NP 12/29/2024 Scan [facility] Scanned, [facility] MRI (SCAN) 12/13/2024 Telephone [place] [id number] [facility] [address] [place] [address] Opal Ortiz NP Results (Cervical spine xray and Lumbar spine xray) 12/12/2024 11:00 AM CDT Office Visit [address] [place] [address] Opal Ortiz NP Numbness (Patient presents with c/o neck pain, numbness and tingling down the right side of her body, headache only on right side.) 12/12/2024 Scan [facility] Scanned, [facility] Image (SCAN) 12/12/2024 Travel 11/23/2024 2:20 PM CDT Office Visit [facility] [address] [place] [address] Opal Ortiz NP Back Pain (Chronic back pain. Would like rx of Tramadol. Lower back pain. Old injury- herniated/bulging disc. ) 11/23/2024 Travel 11/15/2024 Telephone [place] [phone] [facility] [address] [place] [address] Opal Ortiz NP Back Pain; Medication Request from Last 3 Months Immunizations Immunization Administration Dates Next Due Shingrix 01/08/2020,08/10/2019 Tdap (Generic) 08/10/2019 Family History Medical History Relation Comments Arthritis Father Hyperlipidemia Father Hypertension Father Stroke Father Diabetes Maternal Aunt Depression Maternal Grandfather Committed S uicide Diabetes Maternal Grandmother Breast Cancer Mother Cancer Mother Breast cancer, l ymph nodes remove. Heart Disease Mother Pvd Hyperlipidemia Mother Hypertension Mother Cervical cancer Paternal Aunt Breast Cancer Sister Cancer Sister Hodkins, Breast cancer, Aug 2016 52 yrs old Early Sister Cancer Relation Status Comments Father Maternal Aunt Maternal Grandfather Maternal Grandmother Mother Paternal Aunt Sister Social History Tobacco Use Types Packs/Day Years Used Date Smoking Tobacco: Former Cigarettes 1 15 0 07/19/1995 - 07/19/2010 Passive Smoke Exposure: Never Smokeless Tobacco: Never Tobacco Cessation:Counseling Given: No Alcohol Use Standard Drinks/Week Comments Not Currently 0 (1 standard drink = 0.6 oz pur e alcohol) quit drinkin 2016 PHQ-2 Answer Date Recorded Patient Health Questionnaire-2 Score 0 11/23/2024 Comments No Sex and Gender Information Value Date Recorded Sex Assigned at Female 09/01/2024 9:00 AM ELEVATOR CONSTRUCTOR HYDRAULIC Legal Sex Female 11:48 AM ELEVATOR CONSTRUCTOR HYDRAULIC Gender Identity Female 09/01/2024 9:00 AM ELEVATOR CONSTRUCTOR HYDRAULIC Sexual Orientation Straight 09/01/2024 9: 00 AM ELEVATOR CONSTRUCTOR HYDRAULIC Last Filed Vital Signs Vital Sign Reading Time Taken Comments Blood Pressure 122/78 12/12/2024 11:08 AM CDT Pulse 83 12/12/2024 11:08 AM CDT Temperature 36.8 C (98.3 F) 12/12/2024 11:08 AM CDT Respiratory Rate 16 12/12/2024 11:08 AM CDT Oxygen Saturation 99% 12/12/2024 11:08 AM CDT Inhaled Oxygen Concentration - - Weight 59.4 kg (131 lb) 12/12/2024 11:08 AM CDT Height 152.4 cm (5') 12/12/2024 11:08 AM CDT Body Mass Index 25.58 12/12/2024 11:08 AM CDT Plan of Treatment Health Maintenance Due Date Last Done Comments Cervical Cancer Screening Pap Smear (Age 30 to 64) Every 3 Years 1967 Hepatitis B Vaccines (1 of 3 - 19+ 3-dose series) 10/22/1986 Pneumococcal Vaccine: 50+ Years (1 of 1 - PCV) 10/22/2017 COVID-19 Vaccine (2023- season) 2024 Annual Physical 12/29/2024 12/30/2023, 06/04/2022 Cervical Cancer Screening Pap with HPV Testing (Age 30 to 64) Every 5 Years 12/13/2025 12/13/2020, 12/13/2020, 12/13/2020 Cervical Cancer Screening with HPV 12/13/2025 Mammogram Screening 01/12/2026 01/13/2024, 09/23/2022, 09/02/2022, Additional history exists Colorectal Cancer Screening FIT-DNA (3 Years) 02/11/2027 02/12/2024, 02/12/2024, 09/14/2019 DTaP, Tdap and Td Vaccines (2 - Td or Tdap) 08/10/2029 08/10/2019 Zoster Vaccines Completed 01/08/2020, 08/10/2019 Hepatitis C Completed 03/13/2024 PHQ-2 (Physician Sycuan) Completed 11/23/2024 Meningococcal B Vaccine Aged Out No l onger eligible based on patient's age to complete this topic Meningococcal Vaccine Aged Out No anna ron eligible based on patient's age to complete this topic RSV Immunizations Under 20 Months Aged Out No longer eligible based on patient's age to complete this topic Procedures Procedure Name Priority Date/Time Associated Diagnosis Comments MRI GENERIC 12/29/2024 MRI GENERIC 12/29/2024 IMAGE GENERIC 12/12/2024 IMAGE GENERIC 12/12/2024 HEPATITIS C ANTIBODY W/RFX TO HCV RNA Routine 03/13/2024 7:45 AM CDT Need for hepatitis C screening test COLOGUARD (EXACT SCIENCE) Routine 02/12/2024 9:26 AM CDT Screening for colon cancer Screening for osteoporosis MAMMOGRAM GENERIC (SCAN ORDER) 01/13/2024 OUTSIDE CYTOPATH CERV/VAG INTERPRET (PAP) 12/13/2020 from Last 3 Months or Most Recently Relevant to Health Maintenance Results * MRI GENERIC (12/29/2024) Only the most recent of2 resultswithin the time period is included. Anatomical Region Laterality Modality Other 12/29/2024 [employer] Scanned SCANNING Final Resu lt * IMAGE GENERIC (12/12/2024) Only the most recent of2 resultswithin the time period is included. Anatomical Region Laterality Modality Other 12/12/2024 Result [facility] Scanned SCANNING Final Resu lt * HEPATITIS C ANTIBODY W/RFX TO HCV RNA (03/13/2024 7:45 AM CDT) HEPATITIS C AB NON-REACT RAIZA NON-REACT RAIZA [facility] Comment: HCV antibody was non-reactive. There is no laboratory evidence of HCV infection. In most cases, no further action is required. However, if recent HCV exposure is suspected, a test for HCV RNA (test code 15836) is suggested. For additional information please refer to http://education.Right Relevance.Zhou Heiya/faq/WSY28r3 (This link is being provided for informational/ educational purposes only.) 03/13/2024 7:45 AM CDT 03/13/2024 7:46 AM CDT Narrative [employer] [facility]DERS - 03/14/2024 9:58 AM CDT FASTING:YES FASTING: YES Resulting Agency Comment Performing Organization Information: Site ID: [id number] Name: [facility] Address: [address] [id number] Director: Penelope Ornelas MD Opal Ortiz NP LABORATORY Final Res ult [facility] [id number] [address], * COLOGUARD (EXACT SCIENCE) (02/12/2024 9:26 AM CDT) COLOGUARD RESULT Negative Negative [facility] (CLIA #:[id number]) Comment: NEGATIVE TEST RESULT. A negative Cologuard result indicates a low likelihood that a colorectal cancer (CRC) or advanced adenoma (adenomatous polyps with more advanced pre-malignant features) is present. The chance that a person with a negative Cologuard test has a colorectal cancer is less than 1 in 1500 (negative predictive value >99.9%) or has an advanced adenoma is less than 5.3% (negative predictive value 94.7%). These data are based on a prospective cross-sectional study of 10,000 individuals at average risk for colorectal cancer who were screened with both Cologuard and colonoscopy. (Srinivasialchristine T. et al, N Engl J Med 2014;370(14):9679-5572) The normal value (reference range) for this assay is negative. COLOGUARD RE-SCREENING RECOMMENDATION: Periodic colorectal cancer screening is an important part of preventive healthcare for asymptomatic individuals at average risk for colorectal cancer. Following a negative Cologuard result, the [place] Cancer Society and U.S. Multi-Society Task Force screening guidelines recommend a Cologuard re-screening interval of 3 years. References: [place] [employer] Guideline for Colorectal Cancer Screening: https://www.cancer.org/cancer/cpyjo-owohcp-eojlog/fmyztcyrz-dpulddanx-tyyflhw/ac s-rec ommendations.html.; John BANDA, Estefanía ASTORGA, Diana HINES, Colorectal Cancer Screening: Recommendations for Physicians and Patients from the U.S. Multi-Society Task Force on Colorectal Cancer Screening , Am J Gastroenterology 2017; 112:5339-8991. TEST DESCRIPTION: Composite algorithmic analysis of stool DNA-biomarkers with hemoglobin immunoassay. Quantitative values of individual biomarkers are not reportable and are not associated with individual biomarker result reference ranges. Cologuard is intended for colorectal cancer screening of adults of either sex, 45 years or older, who are at average-risk for colorectal cancer (CRC). Cologuard has been approved for use by the U.S. FDA. The performance of Cologuard was established in a cross sectional study of average-risk adults aged 50-84. Cologuard performance in patients ages 45 to 49 years was estimated by sub-group analysis of near-age groups. Colonoscopies performed for a positive result may find as the most clinically significant lesion: colorectal cancer [4.0%], advanced adenoma (including sessile serrated polyps greater than or equal to 1cm diameter) [20%] or non- advanced adenoma [31%]; or no colorectal neoplasia [45%]. These estimates are derived from a prospective cross-sectional screening study of 10,000 individuals at average risk for colorectal cancer who were screened with both Cologuard and colonoscopy. (Saskia Stein et al, N Engl J Med 2014;370(14):7650-4131.) Cologuard may produce a false negative or false positive result (no colorectal cancer or precancerous polyp present at colonoscopy follow up). A negative Cologuard test result does not guarantee the absence of CRC or advanced adenoma (pre-cancer). The current Cologuard screening interval is every 3 years. ([place] Cancer Society and U.S. Multi-Society Task Force). Cologuard performance data in a 10,000 patient pivotal study using colonoscopy as the reference method can be accessed at the following location: www.[employer]Rooms.Zhou Heiya/results. Additional description of the Cologuard test process, warnings and precautions can be found at www.Codeshiprd.com. STOOL STOOL SPECIMEN / Unknown 02/12/2024 9:26 AM CDT 02/13/2024 7:20 PM CDT us Opal Ortiz NP BODY FLUIDS AND STOOLS OR DERABLES Final Result [facility] [address] [address], [employer] (CLIA #:[id number]) [address] [place] [address] * MAMMOGRAM GENERIC (SCAN ORDER) (01/13/2024) Anatomical Region Laterality Modality Other 01/13/2024 us [facility] Scanned SCANNING Final Resu lt * PAP SMEAR WITH HPV (12/13/2020) 12/13/2020 us [facility] Scanned SCANNING Final Resu lt from Last 3 Months or Most Recently Relevant to Health Maintenance Insurance [facility] Care Teams Criminalist Technician Relationship Specialty Start Date End Date Opal Ortiz NP [address] [place] [address] PCP - General NURSE PRACTITIONER 10/09/22
--- OUTSIDE RECORDS SUMMARY | 2025-02-08 07:58 | XMS_ITS | Encounter Summary ---
Author Organization [facility] Address [address] [place] [address] Care Team Providers Care Attorney Name Role Phone Opal Ortiz NP Primary Care Provider [phone] Reason for Visit * Reason Onset Date Comments Results 01/14/2024 Encounter Details Date Type Department Care Team (Late st Contact Info) Description 01/14/[address] [facility] [place] [address] [facility] [address] [place] [phone] Opal Ortiz NP [address] [place] [address] [phone] Results Social History Tobacco Use Types Packs/Day Years [...] Sex Assigned at Female 09/01/2024 9:00 AM CONTRACT MAIL CARRIER Legal Sex Female 11:48 AM CONTRACT MAIL CARRIER Gender Identity Female 09/01/2024 9:00 AM CONTRACT MAIL CARRIER Sexual Orientation Straight 09/01/2024 9: 00 AM CONTRACT MAIL CARRIER documented as of this encounter Progress Notes * Opal Ortiz NP - 01/14/2024 8:33 AM CDT I will send pt Awarepointt message normal findings. * Shannen Alfredo MA - 01/14/2024 7:35 AM CDT Mammogram AH 01/13/24 Impression : No mammographic evidence of malignancy Recommend routine screening mammography in one year BI-RADS Category 1 negative. Results placed on Opal Ortiz's folder documented in this encounter Plan of Treatment Not on file documented as of this encounter Visit Diagnoses Not on filedocumented in this encounter Additional Health Concerns Assessment Noted Time PHQ-9 Depression Total Score: 2 12/30/19 24 8:45 AM CDT documented as of this encounter Care Teams Attorney Relationship Specialty Start Date End Date Opal Ortiz NP [address] [place] [address] PCP - General NURSE PRACTITIONER 10/09/22 documented as of this encounter
--- OUTSIDE RECORDS SUMMARY | 2025-02-08 07:58 | XMS_ITS | Data Portability ---
Author Organization [facility], Main Office Address [address] [place] [address] Assessment No assessment recorded. Plan of Treatment Reminders Order Date Submit Date Provider Last Modified By Organization Details Last Modified Time Details Appointments None recorded. Lab vitamin B12 + folate, serum or blood 2022 023 [email or web address] 11 [facility] ([facility]), [address] [place], [address], 3 14:43:09 vitamin D, 25-hydroxy, total, serum 2022 023 [email or web address] [employer] [facility], [address], [place], [address], 3 14:43:09 magnesium, serum or plasma 2022 023 [email or web address] [employer] [facility], [address], [place], [address], 3 14:43:09 glycohemogl obin, total, blood 2022 023 [email or web address] [employer] [facility], [address], [place], [address], 3 14:43:09 lipid panel, serum 2022 023 [email or web address] [employer] [facility], [address], [place], [address], 3 14:43:08 CMP, serum or plasma 2022 023 [email or web address] 11 [employer] [facility], [address], [place], [address], 3 14:43:08 CK (creatine kinase), total, serum 2022 023 [email or web address] 11 [facility], [address], [place], [address], 3 14:43:08 TSH, serum or plasma 2022 023 [email or web address] 11 [employer] [facility], [address], [place], [address], 3 14:43:08 noninvasive colorectal cancer DNA + occult blood screening, QL, stool 2022 023 [email or web address] (Cologuard Orders Only), [address], [address] [facility], [place], [address], 3 08:37:48 hemoglobin A1C, fingerstick [address], [place], [address], 3 09:24:09 noninvasive colorectal cancer DNA + occult blood screening, QL, stool 2022 023 [email or web address] [address] [employer] (Cologuard Orders Only), [address], [address], [place], [address], 3 08:45:48 rapid strep group A, throat 2022 023 [email or web address] [address], [place], [address], 3 11:45:45 Referral otolaryngol ogist referral 2022 023 [email or web address] 3 Flex Douglas MD, [address] [facility], [address], [place], [address], 08:03:21 orthopedic spine surgeon referral - Please call pt to schedule appt. Thank you [address] [facility], [address], [facility] [address], [place], [address], 15:57:13 orthopedic spine surgeon referral - Needs to see a spine surgeon. Please call pt to schedule appt. Thank you [email or web address] [place] [address] - Orthopedics, [address] [facility], [place], [address], 15:57:11 Procedures None recorded. Surgeries None recorded. Imaging None recorded. Medication Orders loratadine 10 mg tablet 2022 023 [facility] 2425, [address] [facility], [place], [address], 12:46:52 fluticasone propionate 50 mcg/actuati on nasal spray,suspe nsion 2022 023 [facility] 2425, [address] [facility], [place], [address], 12:48:47 Patient TargetsNo targets recorded. Patient Instructions Encounter Date Encounter Id Patient Instructions Last Modified By Organization Details Last Modified Time 05/27/2023 [id number] Patient Health Questionnaire-9* [email or web address] Not available 06/03/2023 08:28:41 depression screening* [email or web address] Not available 05/28/2023 09:03:22 advance care planning: care instructions [email or web address] Not available 05/27/2023 12:54:10 advance directives: care instructions Not available 05/27/2023 12:54:10 [place] Advance Directives [email or web address] Not available 05/27/2023 12:54:11 risk assessment* [email or web address] Not availabl e 05/28/2023 09:03:14 INFLUENZA VACCIN E TD/TDAP PNEUMONIA VACCINE SHINGLES PSA COLORECTAL SCREENING DEPRESSION SCREENING BMI NUTRITION PHYSICAL ACTIVITY ALCOHOL USE TOBACCO USE LUNG CANCER SCREENING SEXUALLY ACTIVE HEPATITIS C SCREENING GLUCOSE SCREENING LIPID SCREENING [email or web address] Not available 05/27/2023 12:51:30 Reason for Referral Orthopedic Spine Surgeon Ref erral for Chronic neck pain Needs to see a spine surgeon. Please call pt to schedule appt. Thank you Referring Physician: Vic Eldridge [facility], Encounter Date: 10/06/2022 Orthopedic Spine Surgeon Ref erral for Chronic low back pain Please call pt to schedule appt. Thank you Referring Physician: Vic Eldridge [facility], Encounter Date: 10/06/2022 Pharmacy Teacher Referral fo r Mass of buccal mucosa Referring Physician: Vic Eldridge [facility], Encounter Date: 05/03/2023 Results Created Date Observation Date Name Description Value Unit Range Abnormal Flag Note LastModifiedBy Organization Detail LastModifiedTime 12/03/19 24 12/03/2023 COLOG UARD cologuard result Cancel led - Order d not applic able Not Available [facility] (Cologuard Orders Only) [address] [facility] [address], [place], [address], 12/03/2023 10:55:01 05/28/20 23 05/28/2023 COLOG UARD cologuard result Cancel led - Duplic ate Order not applic able Not Available [facility] (Cologuard Orders Only) [address], [place], [address], 05/28/2023 08:37:48 10/21/19 23 10/20/2022 rapid strep group A, throa t STREP A negati ve Not Available [address], [place], [address], 10/20/2022 11:20:58 12/03/19 23 12/03/2022 CMP14 glucose 93 mg/dL 70-99 Not Availabl e [facility] ([facility]) [address] [place], [address], 12/03/2022 03:07:49 12/03/19 23 12/03/2022 CMP14 BUN 12 mg/dL 6-24 Not Available [facility] ([facility]) [address] [place], [address], 12/03/2022 03:07:49 12/03/19 23 12/03/2022 CMP14 creatinine 0.76 mg/dL 0.57-1 .00 Not Available [facility] ([facility]) [address] [place], [address], 12/03/2022 03:07:49 12/03/19 23 12/03/2022 CMP14 eGFR 92 mL/mi n/1.7 3 >59 Not Available [facility] ([facility]) [address] [place], [address], 12/03/2022 03:07:49 12/03/1912/03/2022 CMP14 BUN/creatini ne ratio 16 9-23 Not Available [facility] ([facility]) [address] [place], [address], 12/03/2022 03:07:49 12/03/1912/03/2022 CMP14 sodium 140 mmol/ L 134-14 4 Not Available [facility] ([facility]) [address] [place], [address], 12/03/2022 03:07:49 12/03/1912/03/2022 CMP14 potassium 4.5 mmol/ L 3.5-5. 2 Not Available [facility] ([facility]) [address] [place], [address], 12/03/2022 03:07:49 12/03/19 23 12/03/2022 CMP14 chloride 102 mmol/ L 96-106 Not Available [facility] ([facility]) [address] [facility] [place], [address], 12/03/2022 03:07:49 12/03/19 23 12/03/2022 CMP14 carbon dioxide, total 24 mmol/ L 20-29 Not Available [facility] ([facility]) [address] [facility] [place], [address], 12/03/2022 03:07:49 12/03/19 23 12/03/2022 CMP14 anion gap 14.0 mmol/ L 10.0-1 8.0 Not Available [facility] ([facility]) [address] [place], [address], 12/03/2022 03:07:49 12/03/19 23 12/03/2022 CMP14 calcium 9.9 mg/dL 8.7-10 .2 Not Available [facility] ([facility]) [address] [place], [address], 12/03/2022 03:07:49 12/03/19 23 12/03/2022 CMP14 protein, total 7.3 g/dL 6.0-8. 5 Not Available [facility] ([facility]) [address] [place], [address], 12/03/2022 03:07:49 12/03/19 23 12/03/2022 CMP14 albumin 4.3 g/dL 3.8-4. 9 Not Available [facility] ([facility]) [address] [place], [address], 12/03/2022 03:07:49 12/03/19 23 12/03/2022 CMP14 globulin, total 3.0 g/dL 1.5-4. 5 Not Available [facility] ([facility]) [address] [place], [address], 12/03/2022 03:07:49 12/03/1912/03/2022 CMP14 A/G ratio 1.4 1.2-2. 2 Not Available [facility] ([facility]) [address] [facility] [place], [address], 12/03/2022 03:07:49 12/03/1912/03/2022 CMP14 bilirubin, total 0.5 mg/dL 0.0-1. 2 Not Available [facility] ([facility]) [address] [place], [address], 12/03/2022 03:07:49 12/03/1912/03/2022 CMP14 alkaline phosphatase 102 IU/L 44-121 Not Available [facility] ([facility]) [address] [place], [address], 12/03/2022 03:07:49 12/03/19 23 12/03/2022 CMP14 AST (SGOT) 28 IU/L 0-40 Not Avail able [facility] ([facility]) [address] [place], [address], 12/03/2022 03:07:49 12/03/19 23 12/03/2022 CMP14 ALT (SGPT) 23 IU/L 0-32 Not Avail able [facility] ([facility]) [address] [place], [address], 12/03/2022 03:07:49 12/03/1912/03/2022 LP+CH OL/HD L+LDL /HDL cholesterol, total 138 mg/dL 100-19 9 Not Available [facility] ([facility]) [address] [place], [address], 12/03/2022 03:07:52 12/03/19 23 12/03/2022 LP+CH OL/HD L+LDL /HDL triglyceride s 97 mg/dL 0-149 Not Available [facility] ([facility]) [address] [place], [address], 12/03/2022 03:07:52 12/03/19 23 12/03/2022 LP+CH OL/HD L+LDL /HDL HDL cholesterol 54 mg/dL >39 Not Available [facility] ([facility]) [address] [place], [address], 12/03/2022 03:07:52 12/03/19 23 12/03/2022 LP+CH OL/HD L+LDL /HDL VLDL cholesterol charlie 18 mg/dL 5-40 Not Available [facility] ([facility]) [address] [place], [address], 12/03/2022 03:07:52 12/03/1912/03/2022 LP+CH OL/HD L+LDL /HDL LDL chol calc ([facility]) 66 mg/dL 0-99 Not Available [facility] ([facility]) [address] [place], [address], 12/03/2022 03:07:52 12/03/19 23 12/03/2022 LP+CH OL/HD L+LDL /HDL comment: [employer] Not Available [facility] ([facility]) [address] [place], [address], 12/03/2022 03:07:52 12/03/19 23 12/03/2022 LP+CH OL/HD L+LDL /HDL T. chol/HDL ratio 2.6 ratio 0.0-4. 4 T. Chol/ HDL Ratio Men Women 1/2 Avg.R isk 3.4 3.3 Avg.R isk 5.0 4.4 2X Avg.R isk 9.6 7.1 3X Avg.R isk 23.4 11.0 Not Available [facility] ([facility]) [address] [place], [address], 12/03/2022 03:07:52 12/03/19 23 12/03/2022 LP+CH OL/HD L+LDL /HDL LDL/HDL ratio 1.2 ratio 0.0-3. 2 LDL/H DL Ratio Men Women 1/2 Avg.R isk 1.0 1.5 Avg.R isk 3.6 3.2 2X Avg.R isk 6.2 5.0 3X Avg.R isk 8.0 6.1 Not Available [facility] ([facility]) [address] [place], [address], 12/03/2022 03:07:52 12/04/1912/03/2022 hemog lobin A1C, finge rstic k HgbA1C 5.7 Not Available [address], [place], [address], 12/03/2022 09:16:54 06/29/20 23 06/30/2023 COMP. METAB OLIC PANEL (14) glucose 97 mg/dL 70-99 Not Available [facility] ([facility]) [address] [place], [address], 07/04/2023 20:07:56 06/29/20 23 06/30/2023 COMP. METAB OLIC PANEL (14) BUN 17 mg/dL 6-24 Not Available [facility] ([facility]) [address] [place], [address], 07/04/2023 20:07:56 06/29/20 23 06/30/2023 COMP. METAB OLIC PANEL (14) creatinine 0.79 mg/dL 0.57-1 .00 Not Available [facility] ([facility]) [address] [place], [address], 07/04/2023 20:07:56 06/29/20 23 06/30/2023 COMP. METAB OLIC PANEL (14) eGFR 88 mL/mi n/1.7 3 >59 Not Available [facility] ([facility]) [address] [facility], [place], [address], 07/04/2023 20:07:56 06/29/20 23 06/30/2023 COMP. METAB OLIC PANEL (14) BUN/creatini ne ratio 22 9-23 Not Available [facility] ([facility]) [address] [facility], [place], [address], 07/04/2023 20:07:56 06/29/20 23 06/30/2023 COMP. METAB OLIC PANEL (14) sodium 141 mmol/ L 134-14 4 Not Available [facility] ([facility]) [address] [facility], [place], [address], 07/04/2023 20:07:56 06/29/20 23 06/30/2023 COMP. METAB OLIC PANEL (14) potassium 4.1 mmol/ L 3.5-5. 2 Not Available [facility] ([facility]) [address] [facility] [place], [address], 07/04/2023 20:07:56 06/29/20 23 06/30/2023 COMP. METAB OLIC PANEL (14) chloride 103 mmol/ L 96-106 Not Available [facility] ([facility]) [address] [facility] [place], [address], 07/04/2023 20:07:56 06/29/20 23 06/30/2023 COMP. METAB OLIC PANEL (14) carbon dioxide, total 26 mmol/ L 20-29 Not Available [facility] ([facility]) [address] [facility] [place], [address], 07/04/2023 20:07:56 06/29/20 23 06/30/2023 COMP. METAB OLIC PANEL (14) calcium 9.8 mg/dL 8.7-10 .2 Not Available [facility] ([facility]) [address] [place], [address], 07/04/2023 20:07:56 06/29/20 23 06/30/2023 COMP. METAB OLIC PANEL (14) protein, total 7.2 g/dL 6.0-8. 5 Not Available [facility] ([facility]) [address] [place], [address], 07/04/2023 20:07:56 06/29/20 23 06/30/2023 COMP. METAB OLIC PANEL (14) albumin 4.3 g/dL 3.8-4. 9 Not Available [facility] ([facility]) [address] [place], [address], 07/04/2023 20:07:56 06/29/20 23 06/30/2023 COMP. METAB OLIC PANEL (14) globulin, total 2.9 g/dL 1.5-4. 5 Not Available [facility] ([facility]) [address] [place], [address], 07/04/2023 20:07:56 06/29/20 23 06/30/2023 COMP. METAB OLIC PANEL (14) A/G ratio 1.5 1.2-2. 2 Not Available [facility] ([facility]) [address] [place], [address], 07/04/2023 20:07:56 06/29/20 23 06/30/2023 COMP. METAB OLIC PANEL (14) bilirubin, total 0.4 mg/dL 0.0-1. 2 Not Available [facility] ([facility]) [address] [place], [address], 07/04/2023 20:07:56 06/29/20 23 06/30/2023 COMP. METAB OLIC PANEL (14) alkaline phosphatase 109 IU/L 44-121 Not Available [facility] ([facility]) [address] [place], [address], 07/04/2023 20:07:56 06/29/20 23 06/30/2023 COMP. METAB OLIC PANEL (14) AST (SGOT) 23 IU/L 0-40 Not Available [facility] ([facility]) [address] [facility] [place], [address], 07/04/2023 20:07:56 06/29/20 23 06/30/2023 COMP. METAB OLIC PANEL (14) ALT (SGPT) 17 IU/L 0-32 Not Available [facility] ([facility]) [address] [facility] [place], [address], 07/04/2023 20:07:56 06/29/20 23 06/30/2023 LIPID PANEL cholesterol, total 147 mg/dL 100-19 9 Not Available [facility] ([facility]) [address] [place], [address], 07/04/2023 20:07:57 06/29/20 23 06/30/2023 LIPID PANEL triglyceride s 86 mg/dL 0-149 Not Available [facility] ([facility]) [address] [place], [address], 07/04/2023 20:07:57 06/29/20 23 06/30/2023 LIPID PANEL HDL cholesterol 57 mg/dL >39 Not Available [facility] ([facility]) [address] [place], [address], 07/04/2023 20:07:57 06/29/20 23 06/30/2023 LIPID PANEL VLDL cholesterol charlie 16 mg/dL 5-40 Not Available [facility] ([facility]) [address] [place], [address], 07/04/2023 20:07:57 06/29/20 23 06/30/2023 LIPID PANEL LDL chol calc ([facility]) 74 mg/dL 0-99 Not Available [facility] ([facility]) [address] [place], [address], 07/04/2023 20:07:57 06/29/20 23 06/30/2023 LIPID PANEL comment: [employer] Not Available [facility] ([facility]) [address] [facility], [place], [address], 07/04/2023 20:07:57 06/29/20 23 07/04/2023 25-HY DROXY VITAM IN D LCMS D2+D3 25-hydroxy, vitamin D 41 NG/mL Refer ence Range : All Ages: Targe t level s 30 - 100 Not Available [facility] [address] [place], [address], 07/04/2023 20:07:58 06/29/20 23 07/04/2023 25-HY DROXY VITAM IN D LCMS D2+D3 25-hydroxy, vitamin D-2 3.2 NG/mL This test was devel oped and its perfo rmanc e tomy cteri stics deter mined by [employer]. It has not been clear ed or appro des by the Food and Drug Admin istra tion. Not Available [facility] [address] [facility], [place], [address], 07/04/2023 20:07:58 06/29/20 23 07/04/2023 25-HY DROXY VITAM IN D LCMS D2+D3 25-hydroxy, vitamin D-3 38 NG/mL This test was devel oped and its perfo rmanc e tomy cteri stics deter mined by [facility] [facility]. It has not been clear ed or appro des by the Food and Drug Admin istra tion. Not Available [facility] [address] [facility], [place], [address], 07/04/2023 20:07:58 06/29/20 23 06/30/2023 VITAM IN B12 AND FOLAT E vitamin B12 626 pg/mL 232-12 45 Not Available [facility] ([facility]) [address] [facility], [place], [address], 07/04/2023 20:07:58 06/29/20 23 06/30/2023 VITAM IN B12 AND FOLAT E folate (folic acid), serum >20.0 NG/mL >3.0 A serum folat e melonie ntrat ion of less than 3.1 ng/mL is consi dered to repre sent clini charlie defic iency . Not Available [facility] ([facility]) [address] [facility], [place], [address], 07/04/2023 20:07:58 06/29/20 23 06/30/2023 HEMOG LOBIN A1C hemoglobin A1C 5.8 % 4.8-5. 6 above high normal Predi abete s: 5.7 - 6.4 Diabe vladimir: >6.4 Glyce leda contr ol for adult s with diabe vladimir: <7.0 Not Available [facility] ([facility]) [address] [facility], [place], [address], 07/04/2023 20:07:59 06/29/20 23 06/30/2023 TSH REFLE X TO T4F TSH 3.960 uIU/m L 0.450- 4.500 Not Available [facility] ([facility]) [address] [facility], [place], [address], 07/04/2023 20:08:00 06/29/2006/30/2023 CREAT INE KINAS E,TOT AL creatine kinase,total 99 U/L 32-182 Not Available [facility] ([facility]) [address] [place], [address], 07/04/2023 20:08:00 06/29/2006/30/2023 MAGNE SIUM magnesium 2.0 mg/dL 1.6-2. 3 Not Available [facility] ([facility]) [address] [place], [address], 07/04/2023 20:08:01 06/29/20 23 06/29/2023 AMBIG ABBRE V CMP14 DEFAU LT ambig abbrev CMP14 default COMMEN T A hand- writt en panel /prof ile was recei des from your offic e. In accor dance with the [facility]ita mcduffie Test Code Polic y dated January 2003, we have compl eted your order by using the close st curre ntly or forme rly recog nized AMA panel . We have judy william Compr ehens james Metab olic Panel (14), Test Code #32[address]. If this is not the testi ng you wishe d to recei ve on this speci men, pleas e conta ct the [facility] Clien t Inqui ry/Te chnic al Servi yousuf Depar tment to irene fy the test order . We appre ciate your busin ess. Not Available [facility] ([facility]) [address] [place], [address], 07/04/2023 20:08:02 06/29/20 23 06/29/2023 AMBIG ABBRE V LP DEFAU LT ambig abbrev LP default COMMEN T A hand- writt en panel /prof ile was recei des from your offic e. In accor dance with the [facility] Kavita mcduffie Test Code Polic y dated January 2003, we have compl eted your order by using the close st curre ntly or forme rly recog nized AMA panel . We have judy william Lipid Panel , Test Code #30[address]. If this is not the testi ng you wishe d to recei ve on this speci men, pleas e conta ct the [facility] Clien t Inqui ry/Te chnic al Servi yousuf Depar tment to irene fy the test order . We appre ciate your busin ess. Not Available [facility] ([facility] [employer]) [address] [place], [address], 07/04/2023 20:08:03 09/24/19 23 09/23/2022 MAMMO , scree lou, digit al, bilat eral No observ ation record ed. [email or web address] [facility] [address], [place], [address], 09/24/2022 08:53:08 Result Notes None recorded. Problems Name Problem SNOMED Code Status Onset Date Resolution Date Notes Provider Name and Address Organization Details Recorded Time Irritable bowel syndrome 53823014 Active Not Available [facility] 3 07:30:29 Nausea present 849625305 Active Not Available [facility] 3 07:30:29 Generalize d headache 955228599 Active Not Available [facility] 3 07:30:29 Venkat thyroiditi s 44995408 Active Not Available [facility] 3 07:30:29 Flushing 202573659 Active Not Available [facility] 3 07:30:29 Urinary symptoms 405624106 Active Not Available [facility] 3 07:30:29 Headache 35283679 Active Not Available [facility] 3 07:30:29 Low back pain 762476573 Active Not Available [facility] 3 07:30:30 Chest pain 37199227 Active Not Available [facility] 3 07:30:30 Right upper quadrant pain 582535654 Active Not Available [facility] 3 07:30:30 Right lower quadrant pain 732953479 Active Not Available [facility] 3 07:30:30 Paresthesi a of hand 713356963 Active Not Available [facility] 3 07:30:30 Paresthesi a of foot 047304977 Active Not Available [facility] 3 07:30:30 Osteoarthr itis 241029943 Active Not Available [facility] 3 07:30:30 Easy bruising 751051774 Active Not Available [facility] 3 07:30:30 Acute labyrinthi tis 0822464584610 03 Active Not Available [facility] 3 07:30:30 Anxiety 33248478 Active Not Available [facility] 3 07:30:30 Upper respirator y infection 62071914 Active Not Available [facility] 3 07:30:30 Hyperlipid emia 63086065 Active Not Available [facility] 3 07:30:31 Urinary tract infectious disease 85626284 Active Not Available [facility] 3 07:30:31 Bilateral inguinal hernia 64583068 Active Not Available [facility] 3 07:30:31 Chronic neck pain 3047450448226 Active 2022 Vic Eldridge MD [address], [place], [address] , [facility] 3 12:01:20 Chronic low back pain 091002004 Active 2022 Vic Eldridge MD [address], [place], [address] , [place] [facility] 3 12:02:15 Neck pain 67106985 Active 2022 BRODERICK Zepeda, [place] [facility] 3 14:46:41 Spasm of back muscles 484736269 Active 2022 Vic Eldridge MD [address], [place], [address] , [facility] 3 15:39:12 Pain in throat 806338321 Active 2022 BRODERICK Zepeda, [place] [facility] 3 11:20:53 Seasonal allergic rhinitis 326844974 Active 2022 Vic Eldridge MD [address], [place], [address] , [facility] 3 14:51:05 Prediabete s 141286825 Active 2022 Vic Eldridge MD [address], [place], [address] , [facility] 3 09:16:43 Insomnia 705180433 Active 2022 Vic Eldridge MD [address], [place], [address] , [facility] 3 09:20:03 Overweight 066100759 Active 2022 Vic Eldridge MD [address], [place], [address] , [employer] [facility] 3 10:36:36 Mass of buccal mucosa 4589295994363 06 Active 2022 Vic Eldridge MD [address], [place], [address] , [facility] 3 16:28:38 Lateral epicondyli tis of right humerus 2250233148272 07 Active 2022 Vic Eldridge MD [address], [place], [address] , [facility] 3 16:29:24 Annual wellness visit Active 2022 [employer] [facility] [address], [place], [address] , [employer] [facility] 3 12:50:41 At increased risk of nutritiona l deficit 206011072 Active 2022 [employer] [facility] [address], [place], [address] , [facility] 3 12:56:14 Screening for malignant neoplasm of colon Active 2022 [facility] [address], [address], [place], [address] , [employer] 3 15:00:31 Problem Notes None recorded. Procedures Surgical History Date Name Laterality Status Provider Name and Address Organization Details Recorded Time 05/03/20 23 Cortisone Injection (Dequervains/ Greater Trochantric/ Lateral Epicondylitis/ Shoulder/ Subacromial Space/ Knee or Trigger Finger) completed Vic Eldridge MD [address], [place], [address], [facility] 05/03/2023 16:34:11 Tubal Ligation completed Not Available [facility] 09/16/2022 07:26:21 Gallbladder Surgery completed Not Available [facility] 09/16/2022 07:26:21 Imaging Results None recorded. Procedure Notes None recorded. Medical Equipment None Reported. Allergies Allergen ID Allergen Name Allergen Category Reaction Reaction Severity Criticality Documentation Date Start Date Code Code System Note Provider Name and Address Organization Details Recorded Time 93390 Product containin g penicilli n (product) medicatio n Not available Not available Not available 09/16/2022 21809 8001 SNOMED Not Available [facility] 07:35:21 Medications Name Sig Start Date Stop Date Status Note LastModified by Organization Details LastModified Time cyclobenzap rine 10 mg tablet TAKE 1 TABLET 3 TIMES A DAY BY ORAL ROUTE NEEDED. active Not Available Not Available No t Available sodium chloride 5 % eye drops Apply 2 drops twice a day by ophthalmi c route. 12/03 completed Not Available Not Available Not Available prednisone 10 mg tablet 09/15 completed Not Available Not Available Not Available venlafaxine ER 75 mg capsule,ext ended release 24 hr Take 1 capsule every day by oral route. 11/30 completed Not Available Not Available Not Available doxycycline hyclate 100 mg capsule TAKE 1 CAPSULE BY MOUTH TWICE A DAY FOR 10 DAYS 12/03 completed Not Available Not Available Not Available clindamycin HCl 300 mg capsule 09/15 completed Not Available Not Available Not Available atorvastati n 10 mg tablet Take 1 tablet by mouth once daily active Not Available Not Available No t Available azithromyci n 250 mg tablet TAKE 2 TABLETS BY MOUTH ON DAY 1, AND THEN TAKE 1 TABLET BY MOUTH ONCE A DAY ON DAY 2 THROUGH DAY 5 12/03 completed Not Available Not Available Not Available hydrocodone 5 mg-acetamin ophen 325 mg tablet TK 1-2 TS PO Q 4-6 H 06/28 completed Not Available Not Available Not Available meloxicam 15 mg tablet Take 1 tablet by mouth once daily 12/03 completed Not Available Not Available Not Available prednisone 20 mg tablet TAKE 1 TABLET BY MOUTH ONCE DAILY FOR 5 DAYS 12/03 completed Not Available Not Available Not Available phentermine 15 mg capsule TAKE 1 CAPSULE BY MOUTH EVERY DAY active Not Available Not Available No t Available ciprofloxac in 500 mg tablet TAKE 1 TABLET BY MOUTH EVERY 12 HOURS FOR 5 DAYS active Not Available Not Available No t Available sulfamethox azole 800 mg-trimetho prim 160 mg tablet Take 1 tablet every 12 hours by oral route. 06/28 completed Not Available Not Available Not Available hydrocodone 10 mg-acetamin ophen 325 mg tablet Take 1-2 TABLET EVERY 4 HOURS by oral route prn. active Not Available Not Available No t Available doxycycline monohydrate 100 mg tablet TK 1 T PO BID 07/20 completed Not Available Not Available Not Available tramadol 50 mg tablet TAKE 1 TABLET BY MOUTH EVERY 6 HOURS NEEDED active Not Available Not Available No t Available butalbital- acetaminoph en-caffeine 50 mg-325 mg-40 mg tablet Take 1-2 tablet(s) EVERY 4 HOURS by oral route prn active Not Available Not Available No t Available meloxicam 7.5 mg tablet active Not Available Not Available Not Available alprazolam 0.5 mg tablet 2018 active Not Available Not Available Not Avai lable Kenalog 10 mg/mL suspension for injection In office injection administe red by the provider 10/28 completed [facility]: [phone] [phone] Not Available Not Available Not Available meclizine 25 mg tablet Take 1 tablet 3 times a day by oral route. active Not Available Not Available No t Available diazepam 2 mg tablet TK 1 T PO TID PRN 11/30 completed Not Available Not Available Not Available benzonatate 100 mg capsule TAKE 1 CAPSULE BY MOUTH EVERY 8 HOURS NEEDED FOR COUGH 11/20 completed Not Available Not Available Not Available doxycycline monohydrate 100 mg capsule 1 po bid active Not Available Not Available Not Available oseltamivir 75 mg capsule Take 1 capsule twice a day by oral route for 5 days. 11/18 completed Not Available Not Available Not Available lidocaine 5 % topical patch APPLY 1 PATCH TOPICALLY FOR UP TO 12 HOURS DAILY DIRECTED 12/03 completed Not Available Not Available Not Available hydrocodone 5 mg-acetamin ophen 500 mg tablet TAKE 1 TO 2 TABLETS BY MOUTH EVERY 4 TO 6 HOURS NEEDED active Not Available Not Available No t Available levofloxaci n 500 mg tablet TK 1 T PO Q 24 H FOR 10 DAYS 07/20 completed Not Available Not Available Not Available methylpredn isolone 4 mg tablets in a dose pack TAKE 6 TABLETS ON DAY 1 DIRECTED ON PACKAGE AND DECREASE BY 1 TAB EACH DAY FOR A TOTAL OF 6 DAYS 12/03 completed Not Available Not Available Not Available albuterol sulfate HFA 90 mcg/actuati on aerosol inhaler INHALE 2 PUFFS BY MOUTH EVERY 6 HOURS NEEDED FOR WHEEZING FOR SHORTNESS OF BREATH 12/03 completed Not Available Not Available Not Available Vitamin D2 1,250 mcg (50,000 unit) capsule Take 1 capsule every week by oral route. active Not Available Not Available No t Available fluticasone propionate 50 mcg/actuati on nasal spray,suspe nsion [place] 1 spray twice a day by intranasa l route for 30 days. 2022 active Not Available Not Available Not Avai lable sertraline 50 mg tablet TAKE 1 TABLET BY MOUTH EVERY DAY active Not Available Not Available No t Available dicyclomine 10 mg capsule 1 po QID prn 09/15 completed Not Available Not Available Not Available loratadine 10 mg tablet TAKE 1 TABLET BY MOUTH ONCE DAILY active Not Available Not Available No t Available diazepam 5 mg tablet TAKE 1 TABLET BY MOUTH TWICE DAILY NEEDED active Not Available Not Available No t Available nitrofurant oin monohydrate /macrocryst als 100 mg capsule TAKE 1 CAPSULE BY MOUTH TWICE DAILY FOR 10 DAYS 12/03 completed Not Available Not Available Not Available Flexeril 2013 active Not Available Not Available Not Avai lable lidocaine (PF) 10 mg/mL (1 %) injection solution In office injection administe red by the provider 10/28 completed [facility]: [phone]- [phone] Not Available Not Available Not Available ID NOW COVID-19 Test Kit TEST DIRECTED TODAY 12/03 completed Not Available Not Available Not Available Vitals Date Recorded Body height Body mass index (BMI) Body weight Body temperature Heart rate Oxygen saturation Oxygen saturation in Arterial blood by Pulse oximetry Systolic And Diastolic Provider Name and Address Organization Details Last Updated DateTime 3 152.4 cm 24 kg/m2 45312.8 6 g 97.7 [degF] 112 /min 97 % 97 % 110/70 mm[Hg] BRODERICK Zepeda CA [facility] [employer] [facility] 3 11:50:00 Date Recorded Body height Body mass index (BMI) Body weight Body temperature Heart rate Oxygen saturation Oxygen saturation in Arterial blood by Pulse oximetry Systolic And Diastolic Provider Name and Address Organization Details Last Updated DateTime 3 152.4 cm 23.8 kg/m2 75889.2 7 g 97.7 [degF] 76 /min 98 % 98 % 120/80 mm[Hg] BRODERICK Zepeda [facility] [employer] [facility] 3 09:03:55 Date Recorded Body height Body mass index (BMI) Body weight Body temperature Heart rate Oxygen saturation Oxygen saturation in Arterial blood by Pulse oximetry Systolic And Diastolic Provider Name and Address Organization Details Last Updated DateTime 3 152.4 cm 24.6 kg/m2 32375.6 4 g 97.7 [degF] 84 /min 98 % 98 % 100/60 mm[Hg] Sameera kelley CMA [facility] [employer] [facility] 3 16:13:37 Date Recorded Body height Body mass index (BMI) Body weight Heart rate Oxygen saturation Oxygen saturation in Arterial blood by Pulse oximetry Body temperature Systolic And Diastolic Provider Name and Address Organization Details Last Updated DateTime 3 152.4 cm 24.2 kg/m2 69550.4 5 g 81 /min 98 % 98 % 97.7 [degF] 122/88 mm[Hg] Gissell Bateman MA [facility] [employer] [facility] 3 12:38:08 Social History Question Answer Notes LastModified by Organizat ion Details LastModified Time Tobacco Smoking Status Former Smoker Not Available [employer] 09/16/2022 07:26:16 In The 14 Days Before Symptom Onset, Have You Had Close Contact With A Laboratory-confir med COVID-19 While That Case Was Ill? No [id number] Information not available 09/16/2022 In The 14 Days Before Symptom Onset, Have You Had Close Contact With A Person Who Is Under Investigation For COVID-19 While That Person Was Ill? No [id number] Information not available 09/16/2022 What Type Of Diet Are You Following? REGULAR Lactose Intolerant [id number] Information not available 09/16/2022 How Much Tobacco Do You Smoke? 1 PPD [id number].[id number] Information not available 09/16/2022 How Many Years Have You Smoked Tobacco? 25 [id number] Information not available 09/16/2022 Do You Have Any Dietary Restrictions? No [id number] Information not available 09/16/2022 Sex: Unknown Functional Status Question Answer Note LastModified by Organizat ion Details LastModified Time What is your level of alcohol consumption? None [id number] Information not available 09/16/2022 What is your exercise level? Occasional [id number] Information not available 09/16/2022 Mental Status None recorded. Family History Relationship Description Onset Age of this Age Resolved Age Notes LastModified by Organization Details LastModified Time Father Family history of stroke [email or web address] Not available 16:13:42 Mother Diabetes mellitus [email or web address] Not available 16:13:42 Sister Family history of malignant neoplasm [email or web address] Not available 16:13:42 Medical History No medical history recorded. Gynecological HistoryNo gynecological history recorded. Obstetrics History GPAL:G 0 P 0 0 0 0 Immunizations Vaccine Type Date Status Note Provider Nam e and Address Organization Details Recorded Time zoster recombinant 0 completed Not Available [facility] 09/16/2022 07:35:16 zoster recombinant 0 completed Not Available [facility] 09/16/2022 07:35:16 Tdap 0 completed Not Available [facility] 09/16/2022 07:35:16 Past Encounters Encounter ID Performer Location Encounter Start Date Encounter Closed Date Diagnosis/Indication Diagnosis SNOMED-CT Code Diagnosis ICD10 Code Diagnosis Note [id number] Vic Eldridge MD [facility] [address] [place] [address] 10/28/2020 00:00:00 10/28/2020 21:19:11 [id number] Vic Eldridge MD [facility] [place] [address] 11/04/2020 00:00:00 11/04/2020 20:53:47 [id number] Vic Eldridge MD [facility] [address] [facility] [address] [place] [address] 12/13/2020 00:00:00 12/14/2020 20:27:45 [id number] Vic Eldridge MD [facility] [address] [facility] [place] [address] 10/29/2021 00:00:00 10/29/2021 19:56:18 [id number] Vic Eldridge MD [facility] [address] [facility] [address] [place] [address] 10/06/2022 11:42:17 10/06/2022 12:09:30 Chronic neck pain 4699651276 107 M54.2 Continue current meds. Chronic low back pain 27 1646192 M54.50 Continue tramadol and Ibuprofen. [id number] Vic Eldridge MD [facility] [address] [facility] [address] [place] [address] 10/20/2022 10:58:15 10/20/2022 15:39:22 Pain in throat 756780304 R07.0 [id number] Vic Eldridge MD [facility] [address] [facility] [place] [address] 12/03/2022 08:54:40 12/03/2022 09:20:44 Adult health examination 730837126 Z00.00 Prediabetes 165464690 R7 3.03 A1C is 5.7% there is fmhx of prediabete s. Watch carbs in diet. Screening for malignant neoplasm of colon 576319573 Z12.11 Insomnia 048507683 G47.0 0 Use benadryl for this. [id number] Vic Eldridge MD [facility] [address] [facility] [place] [address] 05/03/2023 15:59:58 05/03/2023 16:38:14 Mass of buccal mucosa 2408881950 40247 K13.79 Lateral ep icondylitis of right humerus 0742101467 88078 M77.11 Injected right elbow [id number] Vic Eldridge MD [facility] [address] paul [address] [facility] [place] [address] 05/27/2023 12:28:57 05/27/2023 14:00:25 Seasonal allergic rhinitis 856716966 J30.2 Adult heal th examination 620563411 Z00.00 Depression screening 171 120048 Z13.31 Normal bod y mass index 22854203 Z68.24 Hyperlipidemia 98793587 E78.5 Prediabetes 562600879 R7 3.03 At [facility] risk of nutritional deficit 703982589 Z91.89 Screening for malignant neoplasm of colon 509117220 Z12.11 Health Concerns Section Related Observation LastModified by Organization Detai ls LastModified Time None Recorded Concern Status LastModified by Organization Details LastModified Time None Recorded Advance Directives Directive None Recorded Payers Insurance Date Sequence Insurance Name Policy Number Policy Garcia Covered Member ID Garcia Member ID Guarantor Name 05/03/2023 1 [employer] (POS II) [id number] Babak Turciosers [id number] Susy Gold 05/03/2023 1 [employer] [id number] Susy Gold [id number] Susy Gold 05/27/2023 1 [facility] (O) [id number] Susy Gold [id number] Susy Gold Notes Date Note Type Note Provider Name and Address Organization Details Recorded Time 10/06/2022 text/html Last week twisted back. Has tingling and numbness of both legs. Has hip pain too. Has neck pain and some tingling of both arms. Has a stiffness. Doing ibuprofen tramadol and rest and ice and heat. Took a muscle relaxer. Last MRI was years ago. it was on the lower back and also of neck. She needs to see a spine surgeon. Vic Eldridge MD [address] [place] [address] [address] [facility] [address], [address], [employer] 10/06/2022 20:45:24 12/03/2022 text/html Here today for an annual physical. Started Wednesday with a stomach bug. Had chills and joint pains. Has a lot of diarrhea. Had BW done. Had mammogram in 09/10. Has not had colon cancer screening. Did it a few years ago. Needs a cologuard. No fmhx of colon cancer. Wants an A1C checked.Has a headache on the right side. No n/v or light sensitivity. Vic Eldridge MD [address], [address], [place], [address], [employer] [facility] [employer] 12/03/2022 19:12:03 05/03/2023 text/html Here today for right arm issues. Has a burning sensation of right lateral elbow. Has some neck pain and is doing exercises at home for this. Her right elbow hurts.Has a sore on inner mucosa. Needs to see ENT. It is white, pt was a smoker it does not hurt. Vic Eldridge MD [address], [address], [place], [address], [employer] 05/03/2023 21:31:34 05/27/2023 text/html here for wellness exam [facility] [address], [address], [place], [address], [employer] 05/30/2023 16:50:09 OBGyn Episode No OBEpisode recorded.
--- OUTSIDE RECORDS SUMMARY | 2025-02-08 07:58 | XMS_ITS | Referral Summary ---
Author Organization [facility] Address [address] [place] [address] Care Team Providers Care Fusion Analyst Name Role Phone Vic Eldridge MD Primary Care Provider [phone] Allergies Active Allergy Reactions Criticality Noted Date [...] Next Due Tdap 08/10/2019 [facility] Recombinant 01/08/2020,08/10/2019 Social History Tobacco Use Types Packs/Day Years Used Date Smoking Tobacco: Former Smokeless Tobacco: Never Tobacco Cessation:Counseling Given: Not Answered Alcohol Use Standard Drinks/Week Comments Yes 0 (1 standard drink = 0.6 oz pur e alcohol) Comments Unknown Sex and Gender Information Value Date Recorded Sex Assigned at Not on file 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
--- OUTSIDE RECORDS SUMMARY | 2025-02-08 07:58 | XMS_ITS | Continuity of Care Document ---
Author Organization [facility] Address [address] [place] [address] Phone Care Team Providers Care Tube Washer Name Role Phone Dukes OD, Javier Unavailable Unavailable Advance Directives Directive Yes / No Effective Date File Name No Information Encounters Encounter Description Practice Location Reason(s) For Visit Diagnoses Date Provider Providers Copied on Encounter [facility], [address], [place], [place], [id number], [place] tel:[phone] [facility] No Information Julio- 2-200 4 Dukes OD Javier. [address] , [address], [place], [address], [place]. tel:[phone] Family History Family Member Type Diagnosis Age At Onset No Information Payers Payer name Insurance type Covered democrat ID Authoriza tion(s) No Information Social History Type Description Quantity Date Captured Comments Sex Female Smoking Status No Information Chief Complaint And Reason For Visit No Information Reason For Referral Reason For Referral No Information History Of Present Illness Encounter Date Complaint History Of Prese nt Illness No Information Functional Status Date Functional Assessmen t No Information Instructions Date Instruction Additional Infor mation No Information Assessments Type Assessment Date No Information Patient Care Teams Name Effective Dates (start - stop) Status Members No Information
--- OUTSIDE RECORDS SUMMARY | 2025-02-08 07:58 | XMS_ITS | Encounter Summary ---
Author Organization [facility] Address [address] [place] [address] Care Team Providers Care Loom Changer Name Role Phone Opal Ortiz NP Primary Care Provider [phone] Encounter Details Date Type Department Care Team (Late st Contact Info) Description 08/14/2024 Schedulicity Message Enc [facility] Family Medicine - [place] [address] [facility] [address] [place] [phone] Opal Ortiz, DAREK [address] [place] [address] Follow up on xrays Social History Tobacco Use Types Packs/Day Years [...] Sex Assigned at Female 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 Gender Identity Female 09/01/2024 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
--- OUTSIDE RECORDS SUMMARY | 2025-02-08 07:58 | XMS_ITS | Encounter Summary ---
Author Organization [facility] Address [address] [place] [address] Care Team Providers Care Education Program Coordinator Name Role Phone Opal Ortiz NP Primary Care Provider [phone] Encounter Details Date Type Department Care Team (Late st Contact Info) Description 01/14/2024 Cloud[employer] Message Enc [facility] Family Medicine - [place] [address] [facility] [address] [place] [address] [id number] Opal Ortiz, DAREK [address] [place] [address] normal mammogram Social History Tobacco Use Types Packs/Day Years [...] Sex Assigned at Female 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 Sex Female 11:48 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 Gender Identity Female 09/01/2024 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
== END 2025-02-08 07:54 | disposition home or self-care (01) ==
LOC: ANHIMG 07:55
PROVIDERS: PCP Nurse Practitioner; Visit Provider Nurse Practitioner
DX: Z12.31 Encounter for screening mammogram for malignant neoplasm of breast (principal)
CPT/HCPCS: 77063; 77067